=== PATIENT | female | born 1980 | race Caucasian/White ===

== ENCOUNTER 2016-07-23 13:29 | Emergency (ER) | payer MEDICAID ==
[2016-07-23 14:10] VITALS: BP 124/73
--- NOTE | 2016-07-23 14:51 | EDM.PDOC ---
ED HPI GENERAL MEDICAL PROBLEM - General Chief Complaint: General Stated Complaint: WEAK Time Seen by Provider: 07/23/16 14:07 Source of Information: Reports: Patient History Limitations: Reports: No limitations - History of Present Illness INITIAL COMMENTS - FREE TEXT/NARRATIVE: HISTORY AND PHYSICAL: [35-year-old female who works at [employer] brings her 2 children and because they are ill she has also been sick for the last 2 days] History of Present Illness: [Patient has been ill for 2 days coughing chills fever Patient relates to short tempered feeling sad] Review of Systems: As per history of present illness and below otherwise all systems reviewed and negative. Past medical history: As per history of present illness and as reviewed below otherwise noncontributory. Surgical history: As per history of present illness and as reviewed below otherwise noncontributory. Social history: No reported history of drug or alcohol abuse. Family history: As per history of present illness and as reviewed below otherwise noncontributory. Physical exam: Alert and oriented answering questions appropriately a flat affect HEENT: Atraumatic, normocehpalic, pupils reactive, negative for conjunctival pallor or scleral icterus, mucous membranes moist, throat clear, neck supple, nontender, trachea midline. Lungs: Clear to auscultation, breath sounds equal bilaterally, chest non tender. Heart: S1S2, regular, negative for clicks, rubs, or JVD. Abdomen: Soft, nondistended, nontender. Negative for masses or hepatossplenmegaly. Negative for costovertebral tenderness. Pelvis: Stable nontender. Genitourinary: Deferred. Rectal: Deferred Extremities: Atraumatic, negative for cords or calf pain. Neurovascular unremarkable. Neuro: Awake, alert, oriented. Cranial nerves II through XII unremarkable. Cerebellum unremarkable. Motor and sensory unremarkable throughout. Exam nonfocal. 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 Onset: gradual Duration: Day(s): (2), Constant Location: Reports: chest, generalized Quality: Reports: Ache Severity: moderate Improves with: Reports: None Worsens with: Reports: None Associated Symptoms: Reports: other (sad) Chest Pain Score (Numeric/FACES): 1 - Related Data Allergies Allergy/AdvReac Type Severity Reaction Status Date / Time No Known Allergies Allergy Verified 07/04/15 12:59 Home Meds: Home Meds . 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 Other OB/BYN History: Surgery of her cervix, pt is unsure of what kind Musculoskeletal History: Reports: Other (see below) Other Musculoskeletal History: I&D of leg for MRSA...states was cleared Neurological History: Reports: None Psychiatric History: Reports: None Endocrine/Metabolic History: Reports: None Hematologic History: Reports: None Immunologic History: Reports: None Oncologic (Cancer) History: Reports: None Dermatologic History: Reports: None - Infectious Disease History Infectious Disease History: Reports: MRSA - Past Surgical History Head Surgeries/Procedures: Reports: None Cardiovascular Surgical History: Reports: None Respiratory Surgical History: Reports: None Female Surgical History: Reports: section Endocrine Surgical History: Reports: None Neurological Surgical History: Reports: None Other Musculoskeletal Surgeries/Procedures:: MRSA Oncologic Surgical History: Reports: None Social & Family History - Family History Respiratory: Reports: COPD - Tobacco Use Smoking Status *Q: Current Every Day Smoker Years of Tobacco use: 20 Packs/Tins Daily: 0.5 - Caffeine Use Caffeine Use: Reports: Coffee, Energy drinks, Soda - Alcohol Use Days Per Week of Alcohol Use: 3 Number of Drinks Per Day: 3 Total Drinks Per Week: 9 - Recreational Drug Use Recreational Drug Use: No Drug Use in Last 12 Months: Yes Recreational Drug Type: Reports: Marijuana/Hashish, Methamphetamine Recreational Drug Use Frequency: Not Used In Over 2 Months ED ROS GENERAL - Review of Systems Review Of Systems: ROS reveals no pertinent complaints other than HPI. ED EXAM, GENERAL - Physical Exam Exam: See Below Course - Vital Signs Last Recorded V/S: Last Vital Signs Temp 37.1 C 07/23/16 14:07 Pulse 90 07/23/16 14:07 Resp 16 07/23/16 14:07 BP 124/73 07/23/16 14:07 Pulse Ox 95 07/23/16 14:07 Departure - Departure Time of Disposition: 14:50 Disposition: Home, Self-Care 01 Condition: good Clinical Impression: Viral syndrome Depression (emotion) Qualifiers: Depression Type: unspecified Qualified Code(s): F32.9 - Major depressive disorder, single episode, unspecified Forms: ED Department Discharge Additional Instructions: The following information is given to patients seen in the emergency department who are being discharged to home. This information is to outline your options for follow-up care. We provide all patients seen in our emergency department with a follow-up referral. The need for follow-up, as well as the timing and circumstances, are variable depending upon the specifics of your emergency department visit. If you don't have a primary care physician on staff, we will provide you with a referral. We always advise you to contact your personal physician following an emergency department visit to inform them of the circumstance of the visit and for follow-up with them and/or the need for any referrals to a consulting specialist. The emergency department will also refer you to a specialist when appropriate. This referral assures that you have the opportunity for followup care with a specialist. All of these measure are taken in an effort to provide you with optimal care, which includes your followup. Under all circumstances we always encourage you to contact your private physician who remains a resource for coordinating your care. When calling for followup care, please make the office aware that this follow-up is from your recent emergency room visit. If for any reason you are refused follow-up, please contact the [facility] emergency department at and asked to speak to the emergency department charge nurse. Note is given for off work until [phone] Contact Canelo Coy NP to be evaluated for depression
== END 2016-07-23 15:16 | disposition home or self-care (01) ==
LOC: MW.ED 13:29
DX: F32.9 Major depressive disorder, single episode, unspecified (principal); B34.9 Viral infection, unspecified; F17.210 Nicotine dependence, cigarettes, uncomplicated
CPT/HCPCS: 87804; 99283

== ENCOUNTER 2016-11-28 10:21 | Day surgery (SDC) | payer MEDICAID ==
[~2016-11-28 10:21] MED LIST: Bupivacaine 0.25%/EPINEPHrine 1:200,000 10 ML SDV INJECT ONE; Bupivacaine 0.25%/EPINEPHrine 1:200,000 10 ML SDV ONE; Lactated Ringers 1,000 ML IV SCH; ceFAZolin 2 GM in Premix Bag 1 BAG IV ONE; traMADol 50 MG Tab PO PRN
--- NOTE | 2016-11-28 11:24 | PCM.PREANE ---
Preanesthetic Assessment - Anesthesia/Transfusion/Family Hx Anesthesia History: Prior Anesthesia Without Reaction Family History of Anesthesia Reaction: No Transfusion History: No Prior Transfusion(s) Intubation History: Unknown - Review of Systems General: No Symptoms Pulmonary: No Symptoms Cardiovascular: No Symptoms Gastrointestinal: No Symptoms Neurological: No Symptoms Other: Reports: None - Physical Assessment NPO Status Date: 11/27/16 NPO Status Time: 22:30 O2 Sat by Pulse Oximetry: 96 Respiratory Rate: 16 Vital Signs: Last Vital Signs Temp 36.3 C 11/28/16 10:42 Pulse 79 11/28/16 10:42 Resp 16 11/28/16 10:42 BP 109/64 11/28/16 10:42 Pulse Ox 96 11/28/16 10:42 Height: 1.75 m Weight: 86.183 kg ASA Class: 2 Mental Status: Alert & Oriented x3 Airway Class: Mallampati = 2 Dentition: Reports: Dentures (upper) Thyro-Mental Finger Breadths: 3 Mouth Opening Finger Breadths: 3 ROM/Head Extension: Full Lungs: Clear to auscultation, Normal respiratory effort Cardiovascular: Regular Rate, Regular Rhythm - Lab Values: Laboratory Last Values Urine HCG, Qual NEGATIVE (NEGATIVE) 11/28/16 10:24 - Allergies Allergies/Adverse Reactions: Allergies Allergy/AdvReac Type Severity Reaction Status Date / Time No Known Allergies Allergy Verified 07/04/15 12:59 - Blood Blood Available: No - Anesthesia Plan Pre-Op Medication Ordered: None - Acknowledgements Anesthesia Type Planned: MAC Pt an Appropriate Candidate for the Planned Anesthesia: Yes Alternatives and Risks of Anesthesia Discussed w Pt/Guardian: Yes Pt/Guardian Understands and Agrees with Anesthesia Plan: Yes PreAnesthesia Questionnaire - Past Health History Medical/Surgical History: Denies Medical/Surgical History HEENT History: Reports: Other (See Below) Other HEENT History: has upper dentures Cardiovascular History: Reports: None Respiratory History: Reports: None Gastrointestinal History: Reports: None Genitourinary History: Reports: STD 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: , 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 Other OB/BYN History: Surgery of her cervix, pt is unsure of what kind Musculoskeletal History: Reports: Back Pain, Chronic, Other (See Below) Other Musculoskeletal History: I&D of leg for MRSA...states was cleared Neurological History: Reports: None Psychiatric History: Reports: Depression Endocrine/Metabolic History: Reports: None Hematologic History: Reports: None Immunologic History: Reports: None Oncologic (Cancer) History: Other Oncologic History: melanoma of skin, rt arm Dermatologic History: Reports: Melanoma (left forarm) - Infectious Disease History Infectious Disease History: Reports: MRSA - Past Surgical History Head Surgeries/Procedures: Reports: None HEENT Surgical History: Reports: None Cardiovascular Surgical History: Reports: None Respiratory Surgical History: Reports: None GI Surgical History: Reports: None Female Surgical History: Reports: Section Endocrine Surgical History: Reports: None Neurological Surgical History: Reports: None Oncologic Surgical History: Reports: None Other Dermatological Surgeries/Procedures: I&D of left thigh abscess - SUBSTANCE USE Smoking Status *Q: Current Every Day Smoker (1/2 ppd) Tobacco Use Within Last Twelve Months: Cigarettes Days Per Week of Alcohol Use: 3 Number of Drinks Per Day: 3 Total Drinks Per Week: 9 Recreational Drug Use History: No Recreational Drug Type: Reports: Marijuana/Hashish, Methamphetamine - HOME MEDS Home Medications: Home Meds FLUoxetine HCl [Prozac] 20 mg PO DAILY 11/22/16 [History] Ketorolac Tromethamine 10 mg PO Q6H PRN 11/22/16 [History] busPIRone [Buspar] 5 mg PO BID 11/22/16 [History] - CURRENT (IN HOUSE) MEDS Current Meds: Current Medications Lactated Ringer's (Ringers, Lactated) 1,000 mls @ 125 mls/hr IV ASDIRECTED [facility] Last Admin: 11/28/16 10:43 Dose: 125 mls/hr Tramadol HCl (Ultram) 50 mg PO Q4H PRN PRN Reason: Pain Discontinued Medications Bupivacaine HCl/Epinephrine Bitart (Marcaine 0.25%/Epinephrine 1:200,000) 10 ml INJECT ONETIME ONE Stop: 11/28/16 10:01 Bupivacaine HCl/Epinephrine Bitart (Marcaine 0.25%/Epinephrine 1:200,000) Confirm Administered Dose 20 ml .ROUTE .STK-MED ONE Stop: 11/28/16 07:32 Cefazolin Sodium/Dextrose 2 gm (/ Premix) 50 mls @ 100 mls/hr IV ONETIME ONE Stop: 11/28/16 10:29
[2016-11-28] MEDS ORDERED: Lidocaine 2% 5 ML SDV ONE ×2 (11:33→12:01)
[2016-11-28] MEDS ORDERED: Propofol 200 MG/20 ML SDV ONE ×3 (11:34)
[2016-11-28] MEDS ORDERED: Sodium Chloride 0.9% 20 ML ONE (11:35)
[2016-11-28] MEDS ORDERED: ceFAZolin 1 GM Vial ONE (11:35)
[2016-11-28 14:21] VITALS: BP 90/61
--- NOTE | 2016-11-28 15:34 | PCM.OPNOTE ---
- General Post-Op/Procedure Note Date of Surgery/Procedure: 11/28/16 Operative Procedure(s): reexcision of right arm melanoma for 1cm margins Pre Op Diagnosis: right arm melanoma depth 0.3mm - previously excised by Dr German Post-Op Diagnosis: Same Anesthesia Technique: General LMA, Local Primary Surgeon: G[employer] Navigator: Jennifer Humphreys Complications: None Condition: Good Free Text/Narrative:: Intake & Output 11/27/16 11/28/16 11/28/16 23:59 07:59 15:59 Intake Total 900 Balance 900
--- NOTE | 2016-11-29 16:10 | OR ---
SURGEON: MIGDALIA WALTERS MD DATE OF PROCEDURE: 11/28/2016 PREOPERATIVE DIAGNOSIS: Melanoma, right forearm. POSTOPERATIVE DIAGNOSIS: Melanoma, right forearm measuring previous excision of 1.6 x 1.2 x 0.5 cm. PROCEDURE: Excision of right forearm melanoma for margins. Total excision measuring 4 x 2.5 cm with intermediate closure of 4 cm total length of right forearm. INDICATIONS: Ms. Vaughn is an unfortunate 35-year-old female with melanoma of the right arm. She had this excised by her general surgeon and pathology came back as melanoma with a depth of 0.3 cm. This indicates a 1 cm margin as necessary. Previous excision was transverse and an ellipse of 1.6 x 1.2 cm. This was closed primarily. Risks and benefits of re-excision for margins were discussed with the patient and she was in agreement to proceed. Risks were including, but not limited to, bleeding, infection, damage to underlying or overlying structures, possible need for future interventions, and possible scarring. She does know that we will try to shift this in a more longitudinal fashion for excision. She understands it will be quite large of an excision. In addition, she understands that this will be skin only. The patient is on a court ordered drug testing due to severe drug addiction. We discussed that use of medications including narcotics will not be discussed for this. We will use tramadol and local anesthesia. In addition, during the procedure, we will focus on propofol use and not use narcotics or other things that could disrupt her drug testing. She understands and we have kept meticulous records of this. After all risks and benefits, she was in agreement to proceed. PROCEDURE IN DETAIL: After informed consent was obtained and placed on the chart, the patient was brought to the operating theater and laid in the supine position. After adequate general anesthetic was obtained, the area was prepped and draped in a normal fashion and a time-out was completed to confirm side and site. A 0.25% Marcaine with epinephrine was used in a field block. Once adequately blocked, attention was then paid to excision and meticulous hemostasis. This was excised for a total length of 4 cm x 2.5 cm and closed in an intermediate fashion for a total length of 4 cm. This scar was maintained centrally and dissection was carried down through the subcutaneous fat deeply. Once adequately excised, meticulous hemostasis was obtained and additional Marcaine was used to augment the field block. Once this was completed, the skin was closed in an intermediate fashion using deep 3-0 Monocryl stitches and a running 4-0 subcuticular for the skin. This was dressed with Steri-Strips, fluffs, and a 3- inch Florentino wrap for compression. The patient tolerated this well. All counts and needles were correct at the end the case. FOLLOWUP INSTRUCTIONS: The patient was discharged home with a prescription for tramadol. This is the extent of what we will provide for pain medication. This was discussed with her thoroughly. She understands this. We will see her in clinic in approximately 1 week or sooner if any problems, questions, or concerns. HEMARITZA / JOVITA /[id number]
== END 2016-11-28 14:20 | disposition home or self-care (01) ==
LOC: MW.SDS 10:21
PROVIDERS: ATTEND Plastic Surgery
PROC: 0HQDXZZ Repair Right Lower Arm Skin, External Approach (ICD-10-PCS; principal; 2016-11-28)
PROC: 0HBDXZZ Excision of Right Lower Arm Skin, External Approach (ICD-10-PCS; 2016-11-28)
DX: C43.61 Malignant melanoma of right upper limb, including shoulder (principal); M54.9 Dorsalgia, unspecified; G89.29 Other chronic pain; F17.210 Nicotine dependence, cigarettes, uncomplicated; Z86.14 Personal history of Methicillin resistant Staphylococcus aureus infection; Z86.19 Personal history of other infectious and parasitic diseases; Z79.899 Other long term (current) drug therapy; Z98.890 Other specified postprocedural states
CPT/HCPCS: 11606; 12032; 81025; 88305; A9270; J0690; J7120; 00400; J2704

== ENCOUNTER 2017-03-13 17:20 | Emergency (ER) | payer MEDICAID ==
--- NOTE | 2017-03-13 17:51 | EDM.PDOC ---
ED HPI GENERAL MEDICAL PROBLEM - General Chief Complaint: Skin Complaint Stated Complaint: PAIN RT ARM Time Seen by Provider: 03/13/17 17:50 Source of Information: Reports: Patient History Limitations: Reports: No Limitations - History of Present Illness INITIAL COMMENTS - FREE TEXT/NARRATIVE: HISTORY AND PHYSICAL: History of present illness: [Patient comes to the emergency room complaining of right arm pain. She admits a history of melanoma with excision to her right forearm. She is scheduled for another melanoma excision to her right upper arm on March [address] German. Patient woke up with some swelling to her right hand and pain in her right arm. This has gradually worsened as the day has gone on. Feels that the pain originates in her right neck trapezius area and radiates down her arm. Denies chest pain, shortness of breath and difficulty breathing. ] Review of systems: As per history of present illness and below otherwise all systems reviewed and negative. Past medical history: As per history of present illness and as reviewed below otherwise noncontributory. Surgical history: As per history of present illness and as reviewed below otherwise noncontributory. Social history: No reported history of drug or alcohol abuse. Family history: As per history of present illness and as reviewed below otherwise noncontributory. Physical exam: HEENT: Atraumatic, normocephalic. Extremities: Scar to R forearm. Tender over right sternocleidomastoid and trapezius. No tenderness with palpation over her right upper and lower arm. 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 Cap refill less than 2 seconds to both hands. Radial pulses are 2+ and equal bilaterally. Atraumatic, negative for cords or calf pain. Neurovascular unremarkable. Neuro: Awake, alert, oriented. Motor and sensory unremarkable throughout. Exam nonfocal. Impression: [Neck/right shoulder pain] Plan: [Recommend [id number] analgesics and anti-inflammatories as needed for discomfort. If pain continues or does not improve she should follow-up with her PCP. Return precautions are reviewed with the patient. All of her questions are answered and concerns are addressed. She is in agreement with today's discussion.] Definitive disposition and diagnosis as appropriate pending reevaluation and review of above. Right arm Pain Score (Numeric/FACES): 5 - Related Data Allergies Allergy/AdvReac Type Severity Reaction Status Date / Time No Known Allergies Allergy Verified 03/13/17 17:38 Home Meds: Home Meds . 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 Other OB/BYN History: Surgery of her cervix, pt is unsure of what kind Musculoskeletal History: Reports: Back Pain, Chronic, Other (See Below) Other Musculoskeletal History: I&D of leg for MRSA...states was cleared Neurological History: Reports: None Psychiatric History: Reports: Depression Endocrine/Metabolic History: Reports: None Hematologic History: Reports: None Immunologic History: Reports: None Oncologic (Cancer) History: Other Oncologic History: melanoma of skin, rt arm Dermatologic History: Reports: Melanoma (left forarm) - Infectious Disease History Infectious Disease History: Reports: MRSA - Past Surgical History Head Surgeries/Procedures: Reports: None HEENT Surgical History: Reports: None Cardiovascular Surgical History: Reports: None Respiratory Surgical History: Reports: None GI Surgical History: Reports: None Female Surgical History: Reports: Section Endocrine Surgical History: Reports: None Neurological Surgical History: Reports: None Oncologic Surgical History: Reports: None Other Dermatological Surgeries/Procedures: I&D of left thigh abscess Social & Family History - Family History Respiratory: Reports: COPD - Tobacco Use Smoking Status *Q: Current Every Day Smoker (1/2 ppd) Years of Tobacco use: 20 Packs/Tins Daily: 0.5 - Caffeine Use Caffeine Use: Reports: Coffee, Energy Drinks, Soda - Alcohol Use Days Per Week of Alcohol Use: 3 Number of Drinks Per Day: 3 Total Drinks Per Week: 9 - Recreational Drug Use Recreational Drug Use: No Drug Use in Last 12 Months: Yes Recreational Drug Type: Reports: Marijuana/Hashish, Methamphetamine Recreational Drug Use Frequency: Not Used In Over 2 Months ED ROS GENERAL - Review of Systems Review Of Systems: ROS reveals no pertinent complaints other than HPI. ED EXAM, SKIN/RASH Exam: See Below Course - Vital Signs Last Recorded V/S: Last Vital Signs Temp 98.6 F 03/13/17 17:41 Pulse 94 03/13/17 17:41 Resp 16 03/13/17 17:41 BP 118/75 03/13/17 17:41 Pulse Ox 99 03/13/17 17:41 Departure - Departure Time of Disposition: 18:10 Disposition: Home, Self-Care 01 Condition: Good Clinical Impression: Right arm pain - Discharge Information Instructions: Medical Screening Exam Referrals: PCP,None [Primary Care Provider] - Forms: ED Department Discharge Additional Instructions: The following information is given to patients seen in the emergency department who are being discharged to home. This information is to outline your options for follow-up care. We provide all patients seen in our emergency department with a follow-up referral. The need for follow-up, as well as the timing and circumstances, are variable depending upon the specifics of your emergency department visit. If you don't have a primary care physician on staff, we will provide you with a referral. We always advise you to contact your personal physician following an emergency department visit to inform them of the circumstance of the visit and for follow-up with them and/or the need for any referrals to a consulting specialist. The emergency department will also refer you to a specialist when appropriate. This referral assures that you have the opportunity for follow-up care with a specialist. All of these measure are taken in an effort to provide you with optimal care, which includes your follow-up. Under all circumstances we always encourage you to contact your private physician who remains a resource for coordinating your care. When calling for follow-up care, please make the office aware that this follow-up is from your recent emergency room visit. If for any reason you are refused follow-up, please contact the [facility] emergency department at and asked to speak to the emergency department charge nurse. [facility] [address] [place] [id number] Follow-up with your primary care provider as we discussed. Tylenol, ibuprofen, icy hot to affected area. Return to ER as needed as discussed.
[2017-03-13 17:52] VITALS: BP 118/75
== END 2017-03-13 18:34 | disposition home or self-care (01) ==
LOC: MW.ED 17:20
DX: M25.511 Pain in right shoulder (principal); M54.2 Cervicalgia; F17.210 Nicotine dependence, cigarettes, uncomplicated; Z85.820 Personal history of malignant melanoma of skin; Z98.890 Other specified postprocedural states
CPT/HCPCS: 99282; 99283

== ENCOUNTER 2017-06-05 13:03 | Emergency (ER) | payer MEDICAID ==
[2017-06-05] MEDS ORDERED: Sodium Chloride 0.9% 1,000 ML IV ONE (13:52)
[2017-06-05] MEDS ORDERED: Ketorolac 30 MG/ML SDV IVPUSH ONE (13:52)
[2017-06-05] MEDS ORDERED: Ketorolac 60 MG/2 ML SDV IM ONE (14:00)
--- NOTE | 2017-06-05 14:43 | EDM.PDOC ---
ED HPI GENERAL MEDICAL PROBLEM - General Chief Complaint: General Stated Complaint: SHAKEY/WEAK/SORE THROAT Time Seen by Provider: 06/05/17 13:48 - History of Present Illness INITIAL COMMENTS - FREE TEXT/NARRATIVE: HISTORY AND PHYSICAL: History of present illness: Patient is a 36-year-old female who presents to the emergency room today with complaints of body aches, fever, back pain, sore throat, frontal headache 1 week. States she has not been feeling well and was going to go home from work sick today, she was told she would be fired if she did not have a written excuse. Denies any abdominal pain, nausea, vomiting or diarrhea. Denies any dysuria or bowel or bladder concerned/complaints. Denies any chance of . Has not received the [id number] influenza vaccine. Review of systems: As per history of present illness and below otherwise all systems reviewed and negative. Past medical history: As per history of present illness and as reviewed below otherwise noncontributory. Surgical history: As per history of present illness and as reviewed below otherwise noncontributory. Social history: No reported history of drug or alcohol abuse. Family history: As per history of present illness and as reviewed below otherwise noncontributory. Physical exam: Neuro: Well-developed and well-nourished 36-year-old female. Alert and oriented. Appears nontoxic and in no acute distress HEENT: Atraumatic, normocephalic, pupils reactive, negative for conjunctival pallor or scleral icterus, mucous membranes moist, mild erythema noted to the posterior pharynx without exudate, no lymphadenopathy, neck supple, nontender, trachea midline. Lungs: Clear to auscultation, breath sounds equal bilaterally, chest nontender. Heart: S1S2, regular, negative for clicks, rubs, or JVD. Abdomen: Soft, nondistended, nontender. Negative for masses or hepatosplenomegaly. Negative for costovertebral tenderness. Pelvis: Stable nontender. Genitourinary: Deferred. Rectal: Deferred. Extremities: Atraumatic, negative for cords or calf pain. Neurovascular unremarkable. Neuro: Awake, alert, oriented. Cranial nerves II through XII unremarkable. Cerebellum unremarkable. Motor and sensory unremarkable throughout. Exam nonfocal. Diagnostics: CBC, CMP, Monospot, strep, influenza Therapeutics: IM Toradol Impression: #1 strep throat Plan: 1. Please take the medications as prescribed. Pen-Vee K has been given to you, one tab 3 times daily 10 days. Phenergan with codeine elixir has been given to you for cough and throat pain. May take 1-2 teaspoons every 4-6 hours as needed. This will cause drowsiness so do not take it at work or while needing to drive. He continued to use Tylenol and/or ibuprofen as needed over-the- counter. 2. Warm salt water gargle/rinse 3 times daily. Please get a new toothbrush once you have completed antibiotic. Please drink plenty of fluids to prevent dehydration. 3. Follow-up with your care provider in the next 1-2 days. Return to the ED as needed and as discussed. Definitive disposition and diagnosis as appropriate pending reevaluation and review of above. Duration: Day(s): middle back Pain Score (Numeric/FACES): 4 - Related Data Allergies Allergy/AdvReac Type Severity Reaction Status Date / Time No Known Allergies Allergy Verified 06/05/17 13:33 Home Meds: Home Meds . 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 Other OB/BYN History: Surgery of her cervix, pt is unsure of what kind Musculoskeletal History: Reports: Back Pain, Chronic, Other (See Below) Other Musculoskeletal History: I&D of leg for MRSA...states was cleared Neurological History: Reports: None Psychiatric History: Reports: Depression Endocrine/Metabolic History: Reports: None Hematologic History: Reports: None Immunologic History: Reports: None Oncologic (Cancer) History: Other Oncologic History: melanoma of skin, rt arm Dermatologic History: Reports: Melanoma - Infectious Disease History Infectious Disease History: Reports: MRSA - Past Surgical History Head Surgeries/Procedures: Reports: None HEENT Surgical History: Reports: None Cardiovascular Surgical History: Reports: None Respiratory Surgical History: Reports: None GI Surgical History: Reports: None Female Surgical History: Reports: Section Endocrine Surgical History: Reports: None Neurological Surgical History: Reports: None Oncologic Surgical History: Reports: None Social & Family History - Family History Family Medical History: Noncontributory Respiratory: Reports: COPD - Tobacco Use Smoking Status *Q: Current Every Day Smoker Years of Tobacco use: 15 Packs/Tins Daily: 0.4 - Caffeine Use Caffeine Use: Reports: Coffee - Alcohol Use Days Per Week of Alcohol Use: 3 Number of Drinks Per Day: 3 Total Drinks Per Week: 9 - Recreational Drug Use Recreational Drug Use: No Drug Use in Last 12 Months: Yes Recreational Drug Type: Reports: Marijuana/Hashish, Methamphetamine Recreational Drug Use Frequency: Not Used In Over 2 Months ED ROS GENERAL - Review of Systems Review Of Systems: ROS reveals no pertinent complaints other than HPI. ED EXAM, GENERAL - Physical Exam Exam: See Below (See dictation) Course - Vital Signs Last Recorded V/S: Last Vital Signs Temp 96.7 F 06/05/17 13:33 Pulse 87 06/05/17 13:33 Resp 18 06/05/17 13:33 BP 126/65 06/05/17 13:33 Pulse Ox 97 06/05/17 13:33 Orthostatic Blood Pressure [ 134/77 Standing] Orthostatic Blood Pressure [ 115/76 Sitting] Orthostatic Blood Pressure [ 113/83 Supine] - Orders/Labs/Meds Orders: Active Orders 24 hr Category Date Time Status Orthostatic Vital Signs [RC] ASDIRECTED Care 06/05/17 13:43 Active MONONUCLEOSIS SCREEN [CHEM] Stat Lab 06/05/17 14:16 Received Labs: Laboratory Tests 06/05/17 06/05/17 Range/Units 14:16 14:16 WBC 4.79 (4.0-11.0) K/uL RBC 4.21 L (4.30-5.90) M/uL Hgb 12.4 (12.0-16.0) g/dL Hct 37.8 (36.0-46.0) % MCV 89.8 (80.0-98.0) fL MCH 29.5 (27.0-32.0) pg MCHC 32.8 (31.0-37.0) g/dL RDW Std Deviation 51.5 (28.0-62.0) fl RDW Coeff of Gamal 16 H (11.0-15.0) % Plt Count 212 (150-400) K/uL MPV 11.00 (7.40-12.00) fL Neut % (Auto) 58.9 (48.0-80.0) % Lymph % (Auto) 29.4 (16.0-40.0) % [place] % (Auto) 11.1 (0.0-15.0) % Eos % (Auto) 0.4 (0.0-7.0) % Baso % (Auto) 0.2 (0.0-1.5) % Neut # (Auto) 2.8 (1.4-5.7) K/uL Lymph # (Auto) 1.4 (0.6-2.4) K/uL [place] # (Auto) 0.5 (0.0-0.8) K/uL Eos # (Auto) 0.0 (0.0-0.7) K/uL Baso # (Auto) 0.0 (0.0-0.1) K/uL Nucleated RBC % 0.0 /100WBC Nucleated RBCs # 0 K/uL Sodium 138 (136-146) mmol/L Potassium 4.3 (3.5-5.1) mmol/L Chloride 105 (98-110) mmol/L Carbon Dioxide 25 (21-31) mmol/L BUN 11 (6.0-23.0) mg/dL Creatinine 0.7 (0.6-1.5) mg/dL Est Cr Clr Drug Dosing 117.23 mL/min Estimated GFR (MDRD) > 60.0 ml/min Glucose 80 (60-110) mg/dL Calcium 9.1 (8.8-10.8) mg/dL Total Bilirubin 0.3 (0.1-1.5) mg/dL AST 14 (5-40) IU/L ALT 15 (8-54) IU/L Alkaline Phosphatase 86 (40-150) Total Protein 6.8 (6.0-8.0) g/dL Albumin 4.0 (3.5-5.0) g/dL Globulin 2.8 (2.0-3.5) g/dL Albumin/Globulin Ratio 1.4 (1.3-2.8) Meds: Medications Discontinued Medications Generic Name Dose Route Start Last Admin Trade Name Freq PRN Reason Stop Dose Admin Sodium Chloride 1,000 mls @ 999 mls/hr 06/05/17 13:52 06/05/17 14:42 Normal Saline IV 06/05/17 14:52 Not Given STAT ONE Ketorolac Tromethamine 30 mg 06/05/17 13:52 06/05/17 14:42 Toradol IVPUSH 06/05/17 13:53 Not Given ONETIME ONE Ketorolac Tromethamine 60 mg 06/05/17 14:00 06/05/17 14:06 Toradol IM 06/05/17 14:01 60 mg ONETIME ONE Administration Departure - Departure Time of Disposition: 15:01 Disposition: Home, Self-Care 01 Clinical Impression: Strep throat - Discharge Information Referrals: Sita Pacheco NP [Primary Care Provider] - Forms: ED Department Discharge Additional Instructions: My general discharge The following information is given to patients seen in the emergency department who are being discharged to home. This information is to outline your options for follow-up care. We provide all patients seen in our emergency department with a follow-up referral. The need for follow-up, as well as the timing and circumstances, are variable depending upon the specifics of your emergency department visit. If you don't have a primary care physician on staff, we will provide you with a referral. We always advise you to contact your personal physician following an emergency department visit to inform them of the circumstance of the visit and for follow-up with them and/or the need for any referrals to a consulting specialist. The emergency department will also refer you to a specialist when appropriate. This referral assures that you have the opportunity for follow-up care with a specialist. All of these measure are taken in an effort to provide you with optimal care, which includes your follow-up. Under all circumstances we always encourage you to contact your private physician who remains a resource for coordinating your care. When calling for follow-up care, please make the office aware that this follow-up is from your recent emergency room visit. If for any reason you are refused follow-up, please contact the [facility] Emergency Department at and asked to speak to the emergency department charge nurse. [facility] [address] [place] [id number] 1. Please take the medications as prescribed. Pen-K has been given to you, one tab 3 times daily 10 days. Phenergan with codeine elixir has been given to you for cough and throat pain. May take 1-2 teaspoons every 4-6 hours as needed. This will cause drowsiness so do not take it at work or while needing to drive. He continued to use Tylenol and/or ibuprofen as needed [id number]. 2. Warm salt water gargle/rinse 3 times daily. Please get a new toothbrush once you have completed antibiotic. Please drink plenty of fluids to prevent dehydration. Examination measures as we discussed (good hand washing etc...). 3. Follow-up with your care provider in the next 1-2 days. Return to the ED as needed and as discussed. - My Orders Last 24 Hours: My Active Orders 06/05/17 13:43 Orthostatic Vital Signs [RC] ASDIRECTED 06/05/17 14:16 MONONUCLEOSIS SCREEN [CHEM] Stat - Assessment/Plan Last 24 Hours: My Active Orders 06/05/17 13:43 Orthostatic Vital Signs [RC] ASDIRECTED 06/05/17 14:16 MONONUCLEOSIS SCREEN [CHEM] Stat
[2017-06-05 14:52] LABS: CHLORIDE,CL 105 mmol/L (98-110); SODIUM,NA 138 mmol/L (136-146)
[2017-06-05 16:10] VITALS: BP 109/68
== END 2017-06-05 15:20 | disposition home or self-care (01) ==
LOC: MW.ED 13:03
DX: J02.0 Streptococcal pharyngitis (principal); F17.210 Nicotine dependence, cigarettes, uncomplicated
CPT/HCPCS: 36415; 80053; 85025; 86308; 87804; 87880; 96372; 99283; J1885

== ENCOUNTER 2017-10-24 12:23 | Emergency (ER) | payer MEDICAID ==
--- NOTE | 2017-10-24 12:36 | EDM.PDOC ---
ED HPI GENERAL MEDICAL PROBLEM - General Chief Complaint: ENT Problem Stated Complaint: SORE THROAT AND BOTH EARS ACHE Time Seen by Provider: 10/24/17 12:27 - History of Present Illness INITIAL COMMENTS - FREE TEXT/NARRATIVE: HISTORY AND PHYSICAL: History of present illness: Patient 36-year-old female presents with bilateral ear pain and sore throat she denies fever chills nausea vomiting or other complaints Review of systems: As per history of present illness and below otherwise all systems reviewed and negative. Past medical history: As per history of present illness and as reviewed below otherwise noncontributory. Surgical history: As per history of present illness and as reviewed below otherwise noncontributory. Social history: No reported history of drug or alcohol abuse. Family history: As per history of present illness and as reviewed below otherwise noncontributory. Physical exam: HEENT: Atraumatic, normocephalic, pupils reactive, negative for conjunctival pallor or scleral icterus, mucous membranes moist, throat injected no peritonsillar fullness ovular deviation trismus or hot potato voice neck supple , nontender, trachea midline. TM clear bilaterally Lungs: Clear to auscultation, breath sounds equal bilaterally, chest nontender. Heart: S1S2, regular, negative for clicks, rubs, or JVD. Abdomen: Soft, nondistended, nontender. Negative for masses or hepatosplenomegaly. Negative for costovertebral tenderness. Pelvis: Stable nontender. Genitourinary: Deferred. Rectal: Deferred. Extremities: Atraumatic, negative for cords or calf pain. Neurovascular unremarkable. Neuro: Awake, alert, oriented. Cranial nerves II through XII unremarkable. Cerebellum unremarkable. Motor and sensory unremarkable throughout. Exam nonfocal. Diagnostics: None Therapeutics: None Impression: #1 bilateral otalgia #2 pharyngitis Definitive disposition and diagnosis as appropriate pending reevaluation and review of above. - Related Data Allergies Allergy/AdvReac Type Severity Reaction Status Date / Time No Known Allergies Allergy Verified 06/05/17 13:33 Home Meds: Home Meds . 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 History: Surgery of her cervix, pt is unsure of what kind Musculoskeletal History: Reports: Back Pain, Chronic, Other (See Below) Other Musculoskeletal History: I&D of leg for MRSA...states was cleared Neurological History: Reports: None Psychiatric History: Reports: Depression Endocrine/Metabolic History: Reports: None Hematologic History: Reports: None Immunologic History: Reports: None Oncologic (Cancer) History: Other Oncologic History: melanoma of skin, rt arm Dermatologic History: Reports: Melanoma - Infectious Disease History Infectious Disease History: Reports: MRSA - Past Surgical History Head Surgeries/Procedures: Reports: None HEENT Surgical History: Reports: None Cardiovascular Surgical History: Reports: None Respiratory Surgical History: Reports: None GI Surgical History: Reports: None Female Surgical History: Reports: Section Endocrine Surgical History: Reports: None Neurological Surgical History: Reports: None Oncologic Surgical History: Reports: None Social & Family History - Family History Family Medical History: Noncontributory Respiratory: Reports: COPD - Caffeine Use Caffeine Use: Reports: Coffee ED ROS GENERAL - Review of Systems Review Of Systems: ROS reveals no pertinent complaints other than HPI. ED EXAM, GENERAL - Physical Exam Exam: See Below (See dictation) Departure - Departure Time of Disposition: 12:35 Disposition: Home, Self-Care 01 Condition: Good Clinical Impression: Otalgia, Pharyngitis - Discharge Information Referrals: Sita Pacheco [employer] REPORTER [Primary Care Provider] - Additional Instructions: The following information is given to patients seen in the emergency department who are being discharged to home. This information is to outline your options for follow-up care. We provide all patients seen in our emergency department with a follow-up referral. The need for follow-up, as well as the timing and circumstances, are variable depending upon the specifics of your emergency department visit. If you don't have a primary care physician on staff, we will provide you with a referral. We always advise you to contact your personal physician following an emergency department visit to inform them of the circumstance of the visit and for follow-up with them and/or the need for any referrals to a consulting specialist. The emergency department will also refer you to a specialist when appropriate. This referral assures that you have the opportunity for followup care with a specialist. All of these measure are taken in an effort to provide you with optimal care, which includes your followup. Under all circumstances we always encourage you to contact your private physician who remains a resource for coordinating your care. When calling for followup care, please make the office aware that this follow-up is from your recent emergency room visit. If for any reason you are refused follow-up, please contact the [facility] emergency department at and asked to speak to the emergency department charge nurse. [facility] Primary [facility] [address] [place] [phone] Azithromycin as prescribed follow-up primary medical doctor and/or clinic above as needed as discussed return as needed as discussed/Tylenol as directed. Stop Smoking
[2017-10-24 12:50] VITALS: BP 121/67
== END 2017-10-24 12:46 | disposition home or self-care (01) ==
LOC: MW.ED 12:23
DX: J02.9 Acute pharyngitis, unspecified (principal); H92.03 Otalgia, bilateral
CPT/HCPCS: 99282; 99283

== ENCOUNTER 2018-01-09 08:40 | Emergency (ER) | payer MEDICAID, OTHER ==
[2018-01-09] MEDS ORDERED: Sodium Chloride 0.9% 2.5 ML Syringe FLUSH PRN (08:57)
[2018-01-09] MEDS ORDERED: Ondansetron 4 MG/2 ML SDV IVPUSH ONE (08:57)
[2018-01-09] MEDS ORDERED: Ketorolac 30 MG/ML SDV IVPUSH ONE (08:57)
[2018-01-09] MEDS ORDERED: Sodium Chloride 0.9% 10 ML Syringe FLUSH PRN (08:57)
[2018-01-09] MEDS ORDERED: Sodium Chloride 0.9% 1,000 ML IV ONE (08:57)
--- NOTE | 2018-01-09 09:02 | EDM.PDOC ---
ED HPI GENERAL MEDICAL PROBLEM - General Chief Complaint: General Stated Complaint: BODYACHES Time Seen by Provider: 01/09/18 08:53 - History of Present Illness INITIAL COMMENTS - FREE TEXT/NARRATIVE: HISTORY AND PHYSICAL: History of present illness: The patient is a 37-year-old female who has no GI or history other than 2 C- sections and no other abdominal surgical history and presents with 3 days of nausea vomiting and diarrhea body aches and generalized weakness. The patient says that other adults in her household are ill and she has not had a fever with this. She has a slight cough but she is a smoker she's not had runny nose or sore throat. She has had no urinary complaints. She says that the symptoms started with the nausea and vomiting and then progressed to the diarrhea which she is only having 3 times a day but it is watery and not black or bloody. She says she is having small volumes. She is unable to tolerate anything by mouth and only tried [id number] NyQuil but no specific GI meds. Never had any GI problems and she has not had any recent exotic travel or new foods. She says that she feels thirsty but cannot tolerate anything and she does feels rundown and weak. SHe has not passed out or blacked out and she denies any recent sexual intercourse and denies but did not have a period last month. She says that she has had diffuse abdominal tenderness likely secondary to the vomiting and diarrhea but there is no localization of this pain right or left upper or lower and it is just generalized Review of systems: As per history of present illness and below otherwise all systems reviewed and negative. Past medical history: As per history of present illness and as reviewed below otherwise noncontributory. Surgical history: As per history of present illness and as reviewed below otherwise noncontributory. Social history: No reported history of drug or alcohol abuse. Family history: As per history of present illness and as reviewed below otherwise noncontributory. Physical exam: General: Well-developed well-nourished woman who is nontoxic and moves easily in the ED. She overall is nontoxic but looks somewhat drained HEENT: Atraumatic, normocephalic, , negative for conjunctival pallor or scleral icterus, mucous membranes tacky throat clear, neck supple, nontender, trachea midline. Lungs: Clear to auscultation, breath sounds equal bilaterally, chest nontender. Heart: S1S2, regular rate and rhythm no overt murmurs Abdomen: Soft, nondistended, diffuse generalized minimal tenderness on deep palpation without any localization upper or lower right or left. Negative for masses or hepatosplenomegaly. Bowel sounds are slightly hypoactive Pelvis: Stable nontender. Genitourinary: Deferred. Rectal: Deferred. Extremities: Atraumatic, negative for cords or calf pain. Neurovascular unremarkable. Neuro: Awake, alert, oriented. Cranial nerves II through XII unremarkable. Cerebellum unremarkable. Motor and sensory unremarkable throughout. Exam nonfocal. Diagnostics: CBC CMP lipase UA UCG I will evaluate the stool if the patient produces to see if it is needing further testing Therapeutics: IV fluids Toradol Zofran SHe is feeling much improved in the ED and is now taking ice chips. I will give her Zofran and Bentyl for home. She has not produced a stool sample here for any form of study but advised her use [id number] antidiarrheals such as Imodium and to arrange follow-up Impression: Vomiting and diarrhea improving Definitive disposition and diagnosis as appropriate pending reevaluation and review of above. generalized Pain Score (Numeric/FACES): 3 - Related Data Allergies Allergy/AdvReac Type Severity Reaction Status Date / Time No Known Allergies Allergy Verified 01/09/18 08:47 Home Meds: Home Meds . 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: Surgery of her cervix, pt is unsure of what kind Musculoskeletal History: Reports: Back Pain, Chronic, Other (See Below) Other Musculoskeletal History: I&D of leg for MRSA...states was cleared Neurological History: Reports: None Psychiatric History: Reports: Depression Endocrine/Metabolic History: Reports: None Hematologic History: Reports: None Immunologic History: Reports: None Oncologic (Cancer) History: Other Oncologic History: melanoma of skin, rt arm Dermatologic History: Reports: Melanoma - Infectious Disease History Infectious Disease History: Reports: Chicken Pox, MRSA - Past Surgical History Head Surgeries/Procedures: Reports: None HEENT Surgical History: Reports: None Cardiovascular Surgical History: Reports: None Respiratory Surgical History: Reports: None GI Surgical History: Reports: None Female Surgical History: Reports: Section Endocrine Surgical History: Reports: None Neurological Surgical History: Reports: None Oncologic Surgical History: Reports: None Social & Family History - Family History Family Medical History: Noncontributory Respiratory: Reports: COPD - Tobacco Use Smoking Status *Q: Current Every Day Smoker Years of Tobacco use: 20 Packs/Tins Daily: 0.3 - Caffeine Use Caffeine Use: Reports: Coffee - Recreational Drug Use Recreational Drug Use: Yes Drug Use in Last 12 Months: No Recreational Drug Type: Reports: Marijuana/Hashish Recreational Drug Use Frequency: Not Used In Over 1 Year ED ROS GENERAL - Review of Systems Review Of Systems: ROS reveals no pertinent complaints other than HPI. ED EXAM, GENERAL - Physical Exam Exam: See Below (see dictation) Course - Vital Signs Last Recorded V/S: Last Vital Signs Temp 36.1 C 01/09/18 08:47 Pulse 91 01/09/18 08:47 Resp 16 01/09/18 08:47 BP 112/78 01/09/18 08:47 Pulse Ox 97 01/09/18 08:47 - Orders/Labs/Meds Orders: Active Orders 24 hr Category Date Time Status Communication Order [RC] STAT Care 01/09/18 08:57 Active HCG QUALITATIVE,URINE [URCHEM] Stat Lab 01/09/18 09:35 Ordered UA W/MICROSCOPIC [URIN] Stat Lab 01/09/18 09:35 Ordered Sodium Chloride 0.9% [Saline Flush] Med 01/09/18 08:57 Active 10 ml FLUSH ASDIRECTED PRN Sodium Chloride 0.9% [Saline Flush] Med 01/09/18 08:57 Active 2.5 ml FLUSH ASDIRECTED PRN Saline Lock Insert [OM.PC] Stat Oth 01/09/18 08:57 Ordered Medication Orders Sodium Chloride (Saline Flush) 10 ml FLUSH ASDIRECTED PRN PRN Reason: Keep Vein Open Sodium Chloride (Saline Flush) 2.5 ml FLUSH ASDIRECTED PRN PRN Reason: Keep Vein Open Labs: Laboratory Tests 01/09/18 01/09/1818 Range/Units 09:17 09:17 09:35 WBC 4.18 (4.0-11.0) K/uL RBC 4.62 (4.30-5.90) M/uL Hgb 14.6 (12.0-16.0) g/dL Hct 42.4 (36.0-46.0) % MCV 91.8 (80.0-98.0) fL MCH 31.6 (27.0-32.0) pg MCHC 34.4 (31.0-37.0) g/dL RDW Std Deviation 50.9 (28.0-62.0) fl RDW Coeff of Gamal 15 (11.0-15.0) % Plt Count 175 (150-400) K/uL MPV 10.80 (7.40-12.00) fL Neut % (Auto) 57.9 (48.0-80.0) % Lymph % (Auto) 29.2 (16.0-40.0) % Ponce % (Auto) 12.0 (0.0-15.0) % Eos % (Auto) 0.7 (0.0-7.0) % Baso % (Auto) 0.2 (0.0-1.5) % Neut # (Auto) 2.4 (1.4-5.7) K/uL Lymph # (Auto) 1.2 (0.6-2.4) K/uL Ponce # (Auto) 0.5 (0.0-0.8) K/uL Eos # (Auto) 0.0 (0.0-0.7) K/uL Baso # (Auto) 0.0 (0.0-0.1) K/uL Nucleated RBC % 0.0 /100WBC Nucleated RBCs # 0 K/uL Sodium 137 (136-145) mmol/L Potassium 4.0 (3.5-5.1) mmol/L Chloride 104 (98-107) mmol/L Carbon Dioxide 25.8 (21.0-32.0) mmol/L BUN 9 (7.0-18.0) mg/dL Creatinine 0.8 (0.6-1.0) mg/dL Est Cr Clr Drug Dosing 101.60 mL/min Estimated GFR (MDRD) > 60.0 ml/min Glucose 90 (74-106) mg/dL Calcium 8.6 (8.5-10.1) mg/dL Total Bilirubin 0.3 (0.2-1.0) mg/dL AST 12 L (15-37) IU/L ALT 26 (14-63) IU/L Alkaline Phosphatase 93 (46-116) U/L Total Protein 7.4 (6.4-8.2) g/dL Albumin 3.6 (3.4-5.0) g/dL Globulin 3.8 H (2.0-3.5) g/dL Albumin/Globulin Ratio 1.0 L (1.3-2.8) Lipase 100 (73-393) U/L Urine Color YELLOW Urine Appearance CLEAR Urine pH 6.0 (5.0-8.0) Ur Specific [place] >= 1.030 (1.001-1.035) Urine Protein NEGATIVE (NEGATIVE) mg/dL Urine Glucose (UA) NEGATIVE (NEGATIVE) mg/dL Urine Ketones NEGATIVE (NEGATIVE) mg/dL Urine Occult Blood TRACE-INTACT (NEGATIVE) Urine Nitrite NEGATIVE (NEGATIVE) Urine Bilirubin NEGATIVE (NEGATIVE) Urine Urobilinogen 0.2 (<2.0) EU/dL Ur Leukocyte Esterase NEGATIVE (NEGATIVE) Urine RBC 3-4 (0-2/HPF) Urine WBC 1-2 (0-5/HPF) Ur Epithelial Cells MANY (NONE-FEW) Urine Bacteria FEW (NEGATIVE) Urine Mucus HEAVY (NONE-MOD) Urine HCG, Qual (NEGATIVE) 01/09/18 Range/Units 09:35 WBC (4.0-11.0) K/uL RBC (4.30-5.90) M/uL Hgb (12.0-16.0) g/dL Hct (36.0-46.0) % MCV (80.0-98.0) fL MCH (27.0-32.0) pg MCHC (31.0-37.0) g/dL RDW Std Deviation (28.0-62.0) fl RDW Coeff of Gamal (11.0-15.0) % Plt Count (150-400) K/uL MPV (7.40-12.00) fL Neut % (Auto) (48.0-80.0) % Lymph % (Auto) (16.0-40.0) % Ponce % (Auto) (0.0-15.0) % Eos % (Auto) (0.0-7.0) % Baso % (Auto) (0.0-1.5) % Neut # (Auto) (1.4-5.7) K/uL Lymph # (Auto) (0.6-2.4) K/uL Ponce # (Auto) (0.0-0.8) K/uL Eos # (Auto) (0.0-0.7) K/uL Baso # (Auto) (0.0-0.1) K/uL Nucleated RBC % /100WBC Nucleated RBCs # K/uL Sodium (136-145) mmol/L Potassium (3.5-5.1) mmol/L Chloride (98-107) mmol/L Carbon Dioxide (21.0-32.0) mmol/L BUN (7.0-18.0) mg/dL Creatinine (0.6-1.0) mg/dL Est Cr Clr Drug Dosing mL/min Estimated GFR (MDRD) ml/min Glucose (74-106) mg/dL Calcium (8.5-10.1) mg/dL Total Bilirubin (0.2-1.0) mg/dL AST (15-37) IU/L ALT (14-63) IU/L Alkaline Phosphatase (46-116) U/L Total Protein (6.4-8.2) g/dL Albumin (3.4-5.0) g/dL Globulin (2.0-3.5) g/dL Albumin/Globulin Ratio (1.3-2.8) Lipase (73-393) U/L Urine Color Urine Appearance Urine pH (5.0-8.0) Ur Specific [place] (1.001-1.035) Urine Protein (NEGATIVE) mg/dL Urine Glucose (UA) (NEGATIVE) mg/dL Urine Ketones (NEGATIVE) mg/dL Urine Occult Blood (NEGATIVE) Urine Nitrite (NEGATIVE) Urine Bilirubin (NEGATIVE) Urine Urobilinogen (<2.0) EU/dL Ur Leukocyte Esterase (NEGATIVE) Urine RBC (0-2/HPF) Urine WBC (0-5/HPF) Ur Epithelial Cells (NONE-FEW) Urine Bacteria (NEGATIVE) Urine Mucus (NONE-MOD) Urine HCG, Qual NEGATIVE (NEGATIVE) Meds: Medications Generic Name Dose Route Start Last Admin Trade Name Freq PRN Reason Stop Dose Admin Sodium Chloride 10 ml 01/09/18 08:57 Saline Flush FLUSH ASDIRECTED PRN Keep Vein Open Sodium Chloride 2.5 ml 01/09/18 08:57 Saline Flush FLUSH ASDIRECTED PRN Keep Vein Open Discontinued Medications Generic Name Dose Route Start Last Admin Trade Name Freq PRN Reason Stop Dose Admin Sodium Chloride 1,000 mls @ 999 mls/hr 01/09/18 08:57 01/09/18 09:20 Normal Saline IV 01/09/18 09:57 999 mls/hr STAT ONE Administration Ketorolac Tromethamine 30 mg 01/09/18 08:57 01/09/18 09:21 Toradol IVPUSH 01/09/18 08:58 30 mg ONETIME ONE Administration Ondansetron HCl 4 mg 01/09/18 08:57 01/09/18 09:21 Zofran IVPUSH 01/09/18 08:58 4 mg ONETIME ONE Administration Departure - Departure Time of Disposition: 10:11 Disposition: Home, Self-Care 01 Condition: Good Clinical Impression: Nausea vomiting and diarrhea - Discharge Information Referrals: PCP,None [Primary Care Provider] - Forms: ED Department Discharge Additional Instructions: The following information is given to patients seen in the emergency department who are being discharged to home. This information is to outline your options for follow-up care. We provide all patients seen in our emergency department with a follow-up referral. The need for follow-up, as well as the timing and circumstances, are variable depending upon the specifics of your emergency department visit. If you don't have a primary care physician on staff, we will provide you with a referral. We always advise you to contact your personal physician following an emergency department visit to inform them of the circumstance of the visit and for follow-up with them and/or the need for any referrals to a consulting specialist. The emergency department will also refer you to a specialist when appropriate. This referral assures that you have the opportunity for followup care with a specialist. All of these measure are taken in an effort to provide you with optimal care, which includes your followup. Under all circumstances we always encourage you to contact your private physician who remains a resource for coordinating your care. When calling for followup care, please make the office aware that this follow-up is from your recent emergency room visit. If for any reason you are refused follow-up, please contact the [facility] emergency department at and ask to speak to the emergency department charge nurse. [facility] Primary [facility]- Internal Medicine and [place] [id number] [place] [id number] Push hydration such as small sips of clear liquids and bland bites. Use Zofran as needed for nausea and vomiting and take Bentyl for cramping from the diarrhea. You may use [id number] antidiarrheal medications as you choose. Please call and schedule a follow-up appointment with a provider in the clinic and return to ER as needed and as discussed. The symptoms will gradually improve over the next few days - My Orders Last 24 Hours: My Active Orders 01/09/18 08:57 Communication Order [RC] STAT Sodium Chloride 0.9% [Saline Flush] 10 ml FLUSH ASDIRECTED PRN Sodium Chloride 0.9% [Saline Flush] 2.5 ml FLUSH ASDIRECTED PRN Saline Lock Insert [OM.PC] Stat 01/09/18 09:35 HCG QUALITATIVE,URINE [URCHEM] Stat UA W/MICROSCOPIC [URIN] Stat - Assessment/Plan Last 24 Hours: My Active Orders 01/09/18 08:57 Communication Order [RC] STAT Sodium Chloride 0.9% [Saline Flush] 10 ml FLUSH ASDIRECTED PRN Sodium Chloride 0.9% [Saline Flush] 2.5 ml FLUSH ASDIRECTED PRN Saline Lock Insert [OM.PC] Stat 01/09/18 09:35 HCG QUALITATIVE,URINE [URCHEM] Stat UA W/MICROSCOPIC [URIN] Stat
[2018-01-09 09:51] LABS: CHLORIDE,CL 104 mmol/L (98-107); SODIUM,NA 137 mmol/L (136-145)
[2018-01-09 10:39] VITALS: BP 121/77
== END 2018-01-09 10:39 | disposition home or self-care (01) ==
LOC: MW.ED 08:40
DX: R11.2 Nausea with vomiting, unspecified (principal); R19.7 Diarrhea, unspecified; F17.210 Nicotine dependence, cigarettes, uncomplicated
CPT/HCPCS: 36415; 80053; 81001; 81025; 83690; 85025; 96361; 96374; 96375; 99283; J1885; J2405; J7040

== ENCOUNTER 2018-07-11 09:23 | Emergency (ER) | payer SELFPAY ==
[2018-07-11 09:39] VITALS: BP 120/77
--- NOTE | 2018-07-11 09:59 | EDM.PDOC ---
ED HPI GENERAL MEDICAL PROBLEM - General Chief Complaint: ENT Problem Stated Complaint: SORE THROAT Time Seen by Provider: 07/11/18 09:33 - History of Present Illness INITIAL COMMENTS - FREE TEXT/NARRATIVE: HISTORY AND PHYSICAL: History of present illness: The patient is a 37-year-old female who presents with 3 days of a sore throat without fevers chills cough or upper respiratory symptoms. The patient is here as a patient in the ED with her 2 and a [id number]-[id number]-mug child, who is also a patient here, and says she did not get her influenza shot this year. She denies and has no abdominal complaints vomiting but has had greenish stools that are not diarrhea. She's had an occasional low-grade temp but no discrete cough runny nose head neck or back pain. The patient did not have a tonsillectomy and says that there is pain mostly with swallowing and speaking. She is able to hydrate and eat but there is some discomfort but she is able to tolerate. Review of systems: As per history of present illness and below otherwise all systems reviewed and negative. Past medical history: As per history of present illness and as reviewed below otherwise noncontributory. Surgical history: As per history of present illness and as reviewed below otherwise noncontributory. Social history: No reported history of drug or alcohol abuse. Family history: As per history of present illness and as reviewed below otherwise noncontributory. Physical exam: General: Well-developed well-nourished female who is nontoxic and vital signs are reviewed by me. Her voice is not hoarse or muffled and she is not breathless. HEENT: Atraumatic, normocephalic, pupils reactive, negative for conjunctival pallor or scleral icterus, mucous membranes moist, throat clear of exudates and swelling but there is posterior crypt oral pharyngeal erythema, uvula is midline , there is no cervical adenopathy or nuchal rigidity, neck supple, nontender, trachea midline. Lungs: Clear to auscultation, breath sounds equal bilaterally, chest nontender. Heart: S1S2, regular rate and rhythm no overt murmurs Abdomen: Soft, nondistended, nontender. NABS Pelvis: Deferred Genitourinary: Deferred. Rectal: Deferred. Extremities: Atraumatic, full range of motion without defects or deficits Neurovascular unremarkable. Neuro: Awake, alert, oriented. Cranial nerves II through XII unremarkable. Cerebellum unremarkable. Motor and sensory unremarkable throughout. Exam nonfocal. Diagnostics: Rapid strep influenza Therapeutics: [] Impression: Strep pharyngitis Definitive disposition and diagnosis as appropriate pending reevaluation and review of above. Throat Pain Score (Numeric/FACES): 6 - Related Data Allergies Allergy/AdvReac Type Severity Reaction Status Date / Time No Known Allergies Allergy Verified 07/11/18 09:33 Home Meds: Home Meds . 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: Surgery of her cervix, pt is unsure of what kind Musculoskeletal History: Reports: Back Pain, Chronic, Other (See Below) Other Musculoskeletal History: I&D of leg for MRSA...states was cleared Neurological History: Reports: None Psychiatric History: Reports: Depression Endocrine/Metabolic History: Reports: None Hematologic History: Reports: None Immunologic History: Reports: None Oncologic (Cancer) History: Other Oncologic History: melanoma of skin, rt arm Dermatologic History: Reports: Melanoma - Infectious Disease History Infectious Disease History: Reports: MRSA - Past Surgical History Head Surgeries/Procedures: Reports: None HEENT Surgical History: Reports: None Cardiovascular Surgical History: Reports: None Respiratory Surgical History: Reports: None GI Surgical History: Reports: None Female Surgical History: Reports: Section Endocrine Surgical History: Reports: None Neurological Surgical History: Reports: None Oncologic Surgical History: Reports: None Social & Family History - Family History Family Medical History: Noncontributory Respiratory: Reports: COPD - Tobacco Use Smoking Status *Q: Current Every Day Smoker Years of Tobacco use: 15 Packs/Tins Daily: 1 - Caffeine Use Caffeine Use: Reports: Coffee - Recreational Drug Use Recreational Drug Use: No ED ROS GENERAL - Review of Systems Review Of Systems: ROS reveals no pertinent complaints other than HPI. ED EXAM, GENERAL - Physical Exam Exam: See Below (See dictation) Course - Vital Signs Last Recorded V/S: Last Vital Signs Temp 36.5 C 07/11/18 09:33 Pulse 95 07/11/18 09:33 Resp 18 07/11/18 09:33 BP 120/77 07/11/18 09:33 Pulse Ox 95 07/11/18 09:33 Departure - Departure Time of Disposition: 10:56 Disposition: Home, Self-Care 01 Condition: Good Clinical Impression: Strep pharyngitis - Discharge Information Referrals: Sita Pacheco [employer] [Primary Care Provider] - Forms: ED Department Discharge Additional Instructions: The following information is given to patients seen in the emergency department who are being discharged to home. This information is to outline your options for follow-up care. We provide all patients seen in our emergency department with a follow-up referral. The need for follow-up, as well as the timing and circumstances, are variable depending upon the specifics of your emergency department visit. If you don't have a primary care physician on staff, we will provide you with a referral. We always advise you to contact your personal physician following an emergency department visit to inform them of the circumstance of the visit and for follow-up with them and/or the need for any referrals to a consulting specialist. The emergency department will also refer you to a specialist when appropriate. This referral assures that you have the opportunity for followup care with a specialist. All of these measure are taken in an effort to provide you with optimal care, which includes your followup. Under all circumstances we always encourage you to contact your private physician who remains a resource for coordinating your care. When calling for followup care, please make the office aware that this follow-up is from your recent emergency room visit. If for any reason you are refused follow-up, please contact the [facility] emergency department at and ask to speak to the emergency department charge nurse. [address] [place] [address] Please contact and follow-up with your provider at [facility] as we discussed in the next few days for reevaluation and further care. Push hydration and avoid caffeinated products. Use [id number] medication for symptoms as you choose and rest as much as possible. Take antibiotics that you have been prescribed and as directed until they are finished. Return to ER as needed and as discussed
== END 2018-07-11 11:10 | disposition home or self-care (01) ==
LOC: MW.ED 09:23
DX: J02.0 Streptococcal pharyngitis (principal); F17.210 Nicotine dependence, cigarettes, uncomplicated
CPT/HCPCS: 87804; 87880-QW; 99283

== ENCOUNTER 2018-10-28 09:19 | Emergency (ER) | payer SELFPAY ==
[2018-10-28 09:38] VITALS: BP 130/78
[2018-10-28] MEDS ORDERED: Sodium Chloride 0.9% 1,000 ML IV SCH (09:45)
--- NOTE | 2018-10-28 09:45 | EDM.PDOC ---
ED HPI GENERAL MEDICAL PROBLEM - General Chief Complaint: General Stated Complaint: KNOT ON THROAT/SWOLLEN TOUNGE Time Seen by Provider: 10/28/18 09:44 Source of Information: Reports: Patient - History of Present Illness INITIAL COMMENTS - FREE TEXT/NARRATIVE: HISTORY AND PHYSICAL: History of present illness: [Patient presents with lump sensation in submandibular area, she has no muffled voice drooling or trismus no fever nausea vomiting chills sweats On exam it is firm in the submandibular region no redness warmth or fluctuance some prominence noted ] Review of systems: As per history of present illness and below otherwise all systems reviewed and negative. Past medical history: As per history of present illness and as reviewed below otherwise noncontributory. Surgical history: As per history of present illness and as reviewed below otherwise noncontributory. Social history: No reported history of drug or alcohol abuse. Family history: As per history of present illness and as reviewed below otherwise noncontributory. Physical exam: HEENT: Atraumatic, normocephalic, pupils reactive, negative for conjunctival pallor or scleral icterus, mucous membranes moist, throat clear, neck supple, nontender, trachea midline. Lungs: Clear to auscultation, breath sounds equal bilaterally, chest nontender. Heart: S1S2, regular, negative for clicks, rubs, or JVD. Abdomen: Soft, nondistended, nontender. Negative for masses or hepatosplenomegaly. Negative for costovertebral tenderness. Pelvis: Stable nontender. Genitourinary: Deferred. Rectal: Deferred. Extremities: Atraumatic, negative for cords or calf pain. Neurovascular unremarkable. Neuro: Awake, alert, oriented. Cranial nerves II through XII unremarkable. Cerebellum unremarkable. Motor and sensory unremarkable throughout. Exam nonfocal. Diagnostics: [CBC CMP UA hCG CT soft tissue neck with contrast ] Therapeutics: [Normal saline ] Cipro Nystatin Impression: [Reactive lymph node ] Definitive disposition and diagnosis as appropriate pending reevaluation and review of above. Throat Pain Score (Numeric/FACES): 8 - Related Data Allergies Allergy/AdvReac Type Severity Reaction Status Date / Time No Known Allergies Allergy Verified 10/28/18 09:35 Home Meds: Home Meds . [No Known Home Meds] 10/28/18 [History] Past Medical History - Past Health History Medical/Surgical History: Denies Medical/Surgical History HEENT History: Reports: Other (See Below) Other HEENT History: has upper dentures Cardiovascular History: Reports: None Respiratory History: Reports: None Gastrointestinal History: Reports: None Genitourinary History: Reports: STD DELIVERY HELPER History: Reports: , Spontaneous Other DELIVERY HELPER History: Surgery of her cervix, pt is unsure of what kind Musculoskeletal History: Reports: Back Pain, Chronic, Other (See Below) Other Musculoskeletal History: I&D of leg for MRSA...states was cleared Neurological History: Reports: None Psychiatric History: Reports: Depression Endocrine/Metabolic History: Reports: None Hematologic History: Reports: None Immunologic History: Reports: None Oncologic (Cancer) History: Other Oncologic History: melanoma of skin, rt arm Dermatologic History: Reports: Melanoma - Infectious Disease History Infectious Disease History: Reports: None - Past Surgical History Head Surgeries/Procedures: Reports: None HEENT Surgical History: Reports: None Cardiovascular Surgical History: Reports: None Respiratory Surgical History: Reports: None GI Surgical History: Reports: None Female Surgical History: Reports: Section Endocrine Surgical History: Reports: None Neurological Surgical History: Reports: None Oncologic Surgical History: Reports: None Social & Family History - Family History Family Medical History: Noncontributory Respiratory: Reports: COPD - Tobacco Use Smoking Status *Q: Current Every Day Smoker Years of Tobacco use: 25 Packs/Tins Daily: 1 - Caffeine Use Caffeine Use: Reports: None - Recreational Drug Use Recreational Drug Use: No ED ROS GENERAL - Review of Systems Review Of Systems: See Below ED EXAM, GENERAL - Physical Exam Exam: See Below Course - Vital Signs Last Recorded V/S: Last Vital Signs Temp 97.6 F 10/28/18 09:35 Pulse 85 10/28/18 09:35 Resp 16 10/28/18 09:35 BP 130/78 10/28/18 09:35 Pulse Ox 97 10/28/18 09:35 - Orders/Labs/Meds Orders: Active Orders 24 hr Category Date Time Status CULTURE BLOOD [BC] Stat Lab 10/28/18 10:55 Received CULTURE BLOOD [BC] Stat Lab 10/28/18 11:05 Received Sodium Chloride 0.9% [Normal Saline] 1,000 ml Med 10/28/18 09:45 Active IV STAT Blood Culture x2 Reflex Set [OM.PC] Stat Oth 10/28/18 09:44 Ordered Medication Orders Sodium Chloride (Normal Saline) 1,000 mls @ 125 mls/hr IV STAT SARIAH Last Admin: 10/28/18 11:25 Dose: 125 mls/hr Labs: Laboratory Tests 10/28/18 10/28/18 10/28/18 Range/Units 10:55 10:55 12:00 WBC 6.08 (4.0-11.0) K/uL RBC 4.66 (4.30-5.90) M/uL Hgb 14.3 (12.0-16.0) g/dL Hct 42.7 (36.0-46.0) % MCV 91.6 (80.0-98.0) fL MCH 30.7 (27.0-32.0) pg MCHC 33.5 (31.0-37.0) g/dL RDW Std Deviation 51.0 (28.0-62.0) fl RDW Coeff of Gamal 15 (11.0-15.0) % Plt Count 211 (150-400) K/uL MPV 11.20 (7.40-12.00) fL Neut % (Auto) 64.6 (48.0-80.0) % Lymph % (Auto) 25.8 (16.0-40.0) % [place] % (Auto) 8.4 (0.0-15.0) % Eos % (Auto) 1.0 (0.0-7.0) % Baso % (Auto) 0.2 (0.0-1.5) % Neut # (Auto) 3.9 (1.4-5.7) K/uL Lymph # (Auto) 1.6 (0.6-2.4) K/uL [place] # (Auto) 0.5 (0.0-0.8) K/uL Eos # (Auto) 0.1 (0.0-0.7) K/uL Baso # (Auto) 0.0 (0.0-0.1) K/uL Nucleated RBC % 0.0 /100WBC Nucleated RBCs # 0 K/uL Sodium 135 L (136-145) mmol/L Potassium 4.1 (3.5-5.1) mmol/L Chloride 103 (98-107) mmol/L Carbon Dioxide 24.9 (21.0-32.0) mmol/L BUN 10 (7.0-18.0) mg/dL Creatinine 0.8 (0.6-1.0) mg/dL Est Cr Clr Drug Dosing 101.60 mL/min Estimated GFR (MDRD) > 60.0 ml/min Glucose 95 (74-106) mg/dL Calcium 8.6 (8.5-10.1) mg/dL Total Bilirubin 0.4 (0.2-1.0) mg/dL AST 10 L (15-37) IU/L ALT 24 (14-63) IU/L Alkaline Phosphatase 89 (46-116) U/L Total Protein 7.4 (6.4-8.2) g/dL Albumin 3.7 (3.4-5.0) g/dL Globulin 3.7 (2.6-4.0) g/dL Albumin/Globulin Ratio 1.0 (0.9-1.6) Urine Color YELLOW Urine Appearance SLT CLOUDY Urine pH 6.0 (5.0-8.0) Ur Specific [place] 1.025 (1.001-1.035) Urine Protein NEGATIVE (NEGATIVE) mg/dL Urine Glucose (UA) NEGATIVE (NEGATIVE) mg/dL Urine Ketones NEGATIVE (NEGATIVE) mg/dL Urine Occult Blood TRACE-LYSED H (NEGATIVE) Urine Nitrite NEGATIVE (NEGATIVE) Urine Bilirubin NEGATIVE (NEGATIVE) Urine Urobilinogen 0.2 (<2.0) EU/dL Ur Leukocyte Esterase NEGATIVE (NEGATIVE) Urine RBC 0-1 (0-2/HPF) Urine WBC 0-2 (0-5/HPF) Ur Epithelial Cells MODERATE (NONE-FEW) Urine Bacteria RARE (NEGATIVE) Urine Mucus LIGHT (NONE-MOD) Urine HCG, Qual (NEGATIVE) 10/28/18 Range/Units 12:00 WBC (4.0-11.0) K/uL RBC (4.30-5.90) M/uL Hgb (12.0-16.0) g/dL Hct (36.0-46.0) % MCV (80.0-98.0) fL MCH (27.0-32.0) pg MCHC (31.0-37.0) g/dL RDW Std Deviation (28.0-62.0) fl RDW Coeff of Gamal (11.0-15.0) % Plt Count (150-400) K/uL MPV (7.40-12.00) fL Neut % (Auto) (48.0-80.0) % Lymph % (Auto) (16.0-40.0) % [place] % (Auto) (0.0-15.0) % Eos % (Auto) (0.0-7.0) % Baso % (Auto) (0.0-1.5) % Neut # (Auto) (1.4-5.7) K/uL Lymph # (Auto) (0.6-2.4) K/uL [place] # (Auto) (0.0-0.8) K/uL Eos # (Auto) (0.0-0.7) K/uL Baso # (Auto) (0.0-0.1) K/uL Nucleated RBC % /100WBC Nucleated RBCs # K/uL Sodium (136-145) mmol/L Potassium (3.5-5.1) mmol/L Chloride (98-107) mmol/L Carbon Dioxide (21.0-32.0) mmol/L BUN (7.0-18.0) mg/dL Creatinine (0.6-1.0) mg/dL Est Cr Clr Drug Dosing mL/min Estimated GFR (MDRD) ml/min Glucose (74-106) mg/dL Calcium (8.5-10.1) mg/dL Total Bilirubin (0.2-1.0) mg/dL AST (15-37) IU/L ALT (14-63) IU/L Alkaline Phosphatase (46-116) U/L Total Protein (6.4-8.2) g/dL Albumin (3.4-5.0) g/dL Globulin (2.6-4.0) g/dL Albumin/Globulin Ratio (0.9-1.6) Urine Color Urine Appearance Urine pH (5.0-8.0) Ur Specific [place] (1.001-1.035) Urine Protein (NEGATIVE) mg/dL Urine Glucose (UA) (NEGATIVE) mg/dL Urine Ketones (NEGATIVE) mg/dL Urine Occult Blood (NEGATIVE) Urine Nitrite (NEGATIVE) Urine Bilirubin (NEGATIVE) Urine Urobilinogen (<2.0) EU/dL Ur Leukocyte Esterase (NEGATIVE) Urine RBC (0-2/HPF) Urine WBC (0-5/HPF) Ur Epithelial Cells (NONE-FEW) Urine Bacteria (NEGATIVE) Urine Mucus (NONE-MOD) Urine HCG, Qual NEGATIVE (NEGATIVE) Meds: Medications Generic Name Dose Route Start Last Admin Trade Name Freq PRN Reason Stop Dose Admin Sodium Chloride 1,000 mls @ 125 mls/hr 10/28/18 09:45 10/28/18 11:25 Normal Saline IV 125 mls/hr STAT SARIAH Administration Discontinued Medications Generic Name Dose Route Start Last Admin Trade Name Freq PRN Reason Stop Dose Admin Iopamidol 80 ml 10/28/18 12:12 10/28/18 12:24 Isovue Multipack-370 (76%) IVPUSH 10/28/18 12:13 80 ml ONETIME STA Administration Departure - Departure Time of Disposition: 12:50 Disposition: Home, Self-Care 01 Condition: Good Clinical Impression: Lymph node enlargement - Discharge Information Referrals: Sita Pacheco NP [Primary Care Provider] - Forms: ED Department Discharge Additional Instructions: Medication as prescribed Return if symptoms persist or worsen 24 hours off work follow-up with primary care in 2 weeks sooner as needed [facility] - [facility] [address] [place] [address] The following information is given to patients seen in the emergency department who are being discharged to home. This information is to outline your options for follow-up care. We provide all patients seen in our emergency department with a follow-up referral. The need for follow-up, as well as the timing and circumstances, are variable depending upon the specifics of your emergency department visit. If you don't have a primary care physician on staff, we will provide you with a referral. We always advise you to contact your personal physician following an emergency department visit to inform them of the circumstance of the visit and for follow-up with them and/or the need for any referrals to a consulting specialist. The emergency department will also refer you to a specialist when appropriate. This referral assures that you have the opportunity for follow-up care with a specialist. All of these measure are taken in an effort to provide you with optimal care, which includes your follow-up. Under all circumstances we always encourage you to contact your private physician who remains a resource for coordinating your care. When calling for follow-up care, please make the office aware that this follow-up is from your recent emergency room visit. If for any reason you are refused follow-up, please contact the [facility] emergency department at and asked to speak to the emergency department charge nurse. - My Orders Last 24 Hours: My Active Orders 10/28/18 09:44 Blood Culture x2 Reflex Set [OM.PC] Stat 10/28/18 09:45 Sodium Chloride 0.9% [Normal Saline] 1,000 ml IV STAT 10/28/18 10:55 CULTURE BLOOD [BC] Stat 10/28/18 11:05 CULTURE BLOOD [BC] Stat - Assessment/Plan Last 24 Hours: My Active Orders 10/28/18 09:44 Blood Culture x2 Reflex Set [OM.PC] Stat 10/28/18 09:45 Sodium Chloride 0.9% [Normal Saline] 1,000 ml IV STAT 10/28/18 10:55 CULTURE BLOOD [BC] Stat 10/28/18 11:05 CULTURE BLOOD [BC] Stat
[2018-10-28 11:40] LABS: CHLORIDE,CL 103 mmol/L (98-107); SODIUM,NA 135 mmol/L (136-145)
[2018-10-28] MEDS ORDERED: Iopamidol 755 MG/ML 500 ML Multipack Bottle IVPUSH STA (12:12)
--- NOTE | 2018-10-28 12:35 | CT ---
EXAMINATION: CT soft tissue neck with contrast HISTORY: Swelling COMPARISON: None TECHNIQUE: Axial CT imaging obtained through the neck following the administration of 80 mL of Isovue-370 in the right arm. Coronal and sagittal reconstructions obtained. FINDINGS: Mastoid air cells, middle ears, and paranasal sinuses are clear. Orbits and globes are symmetric. The oropharyngeal and nasopharyngeal mucosal structures are symmetric. Mildly prominent 8 mm submandibular lymph node noted within the region of concern. No bulky cervical lymphadenopathy. Parotid and submandibular glands appear normal. Lung apices are clear. Visualized osseous structures appear normal. IMPRESSION: 1. Mildly prominent, nonpathologically enlarged submandibular lymph node noted within the region of concern. Given the size this is most likely reactive.
== END 2018-10-28 13:30 | disposition home or self-care (01) ==
LOC: MW.ED 09:19
DX: R59.0 Localized enlarged lymph nodes (principal)
CPT/HCPCS: 36415; 70491; 80053; 81001; 81025; 85025; 87040; 96360; 96361; 99283; J7040; Q9967

== ENCOUNTER 2019-02-25 18:09 | Emergency (ER) | payer SELFPAY ==
--- NOTE | 2019-02-25 18:27 | EDM.PDOC ---
ED HPI GENERAL MEDICAL PROBLEM - General Chief Complaint: General Stated Complaint: NOT FEELING WELL Time Seen by Provider: 02/25/19 18:26 Source of Information: Reports: Patient History Limitations: Reports: No Limitations - History of Present Illness INITIAL COMMENTS - FREE TEXT/NARRATIVE: HISTORY AND PHYSICAL: History of present illness: Patient is a 38-year-old female presents to the ED with complaint of cold symptoms x 2 days. She is 14 weeks gestation. States she has had nasal congestion, sinus pressure, cough, sore throat. She denies chest pain, shortness of breath, fevers, chills, abdominal pain, vaginal bleeding or discharge. She states she did vomit this morning but has had morning sickness with . She does smoke 1/2 ppd. Denies significant past medical history. Review of systems: As per history of present illness and below otherwise all systems reviewed and negative. Past medical history: As per history of present illness and as reviewed below otherwise noncontributory. Surgical history: As per history of present illness and as reviewed below otherwise noncontributory. Social history: No reported history of drug or alcohol abuse. Family history: As per history of present illness and as reviewed below otherwise noncontributory. Physical exam: General: Patient sitting comfortably in no acute distress and nontoxic appearing HEENT: Atraumatic, normocephalic, pupils reactive, negative for conjunctival pallor or scleral icterus, mucous membranes moist, throat clear, neck supple, nontender, trachea midline. No meningeal signs. Lungs: Clear to auscultation, breath sounds equal bilaterally, chest nontender. Heart: S1S2, regular, negative for clicks, rubs, or overt murmur. Abdomen: Soft, nondistended, nontender. Negative for masses or hepatosplenomegaly. Negative for costovertebral tenderness. No rigidity, rebound , guarding. Pelvis: Stable nontender. Genitourinary: Deferred. Rectal: Deferred. Extremities: Atraumatic, negative for cords or calf pain. Neurovascular unremarkable. Neuro: Awake, alert, oriented. Cranial nerves II through XII unremarkable. Cerebellum unremarkable. Motor and sensory unremarkable throughout. Exam nonfocal. 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 - Related Data Allergies Allergy/AdvReac Type Severity Reaction Status Date / Time No Known Allergies Allergy Verified 02/25/19 18:22 Home Meds: Home Meds . [No Known Home Meds] 10/28/18 [History] Past Medical History - Past Health History Medical/Surgical History: Denies Medical/Surgical History HEENT History: Reports: Other (See Below) Other HEENT History: has upper dentures Cardiovascular History: Reports: None Respiratory History: Reports: None Gastrointestinal History: Reports: None Genitourinary History: Reports: STD POSTAL CARRIER History: Reports: , Spontaneous Other POSTAL CARRIER History: Surgery of her cervix, pt is unsure of what kind Musculoskeletal History: Reports: Back Pain, Chronic, Other (See Below) Other Musculoskeletal History: I&D of leg for MRSA...states was cleared Neurological History: Reports: None Psychiatric History: Reports: Depression Endocrine/Metabolic History: Reports: None Hematologic History: Reports: None Immunologic History: Reports: None Oncologic (Cancer) History: Other Oncologic History: melanoma of skin, rt arm Dermatologic History: Reports: Melanoma - Infectious Disease History Infectious Disease History: Reports: None - Past Surgical History Head Surgeries/Procedures: Reports: None HEENT Surgical History: Reports: None Cardiovascular Surgical History: Reports: None Respiratory Surgical History: Reports: None GI Surgical History: Reports: None Female Surgical History: Reports: Section Endocrine Surgical History: Reports: None Neurological Surgical History: Reports: None Oncologic Surgical History: Reports: None Social & Family History - Family History Family Medical History: Noncontributory Respiratory: Reports: COPD - Tobacco Use Smoking Status *Q: Current Every Day Smoker Years of Tobacco use: 22 Packs/Tins Daily: 0.5 - Caffeine Use Caffeine Use: Reports: Coffee - Recreational Drug Use Recreational Drug Use: No ED ROS GENERAL - Review of Systems Review Of Systems: ROS reveals no pertinent complaints other than HPI. ED EXAM, GENERAL - Physical Exam Exam: See Below (see dictation) Course - Vital Signs Last Recorded V/S: Last Vital Signs Temp 97.2 F 02/25/19 19:50 Pulse 92 02/25/19 19:50 Resp 18 02/25/19 19:50 BP 109/75 02/25/19 19:50 Pulse Ox 97 02/25/19 19:50 - Orders/Labs/Meds Orders: Active Orders 24 hr Category Date Time Status CULTURE STREP A CONFIRMATION [RM] Stat Lab 02/25/19 18:30 Results STREP SCRN A RAPID W CULT CONF [RM] Stat Lab 02/25/19 18:30 Results Labs: Laboratory Tests 02/25/19 Range/Units 18:40 Urine Color YELLOW Urine Appearance SLT CLOUDY Urine pH 6.5 (5.0-8.0) Ur Specific [place] 1.020 (1.001-1.035) Urine Protein NEGATIVE (NEGATIVE) mg/dL Urine Glucose (UA) NEGATIVE (NEGATIVE) mg/dL Urine Ketones 40 H (NEGATIVE) mg/dL Urine Occult Blood TRACE-INTACT H (NEGATIVE) Urine Nitrite NEGATIVE (NEGATIVE) Urine Bilirubin SMALL H (NEGATIVE) Urine Ictotest NEGATIVE Urine Urobilinogen 2.0 H (<2.0) EU/dL Ur Leukocyte Esterase NEGATIVE (NEGATIVE) Urine RBC 1-3 (0-2/HPF) Urine WBC 0-2 (0-5/HPF) Ur Epithelial Cells FEW (NONE-FEW) Urine Bacteria FEW (NEGATIVE) Urine Mucus MODERATE (NONE-MOD) Departure - Departure Time of Disposition: 19:28 Disposition: Home, Self-Care 01 Condition: Good Clinical Impression: Upper respiratory infection - Discharge Information Instructions: Upper Respiratory Infection, Adult, [id number] Referrals: PCP,None [Primary Care Provider] - Forms: ED Department Discharge Additional Instructions: The following information is given to patients seen in the emergency department who are being discharged to home. This information is to outline your options for follow-up care. We provide all patients seen in our emergency department with a follow-up referral. The need for follow-up, as well as the timing and circumstances, are variable depending upon the specifics of your emergency department visit. If you don't have a primary care physician on staff, we will provide you with a referral. We always advise you to contact your personal physician following an emergency department visit to inform them of the circumstance of the visit and for follow-up with them and/or the need for any referrals to a consulting specialist. The emergency department will also refer you to a specialist when appropriate. This referral assures that you have the opportunity for follow-up care with a specialist. All of these measure are taken in an effort to provide you with optimal care, which includes your follow-up. Under all circumstances we always encourage you to contact your private physician who remains a resource for coordinating your care. When calling for follow-up care, please make the office aware that this follow-up is from your recent emergency room visit. If for any reason you are refused follow-up, please contact the [facility] Emergency Department at and asked to speak to the emergency department charge nurse. [facility] [address] [place] [id number] [address] OTC cold medications as instructed Follow up with experimental mechanic [employer] Return to eD as needed as discussed - My Orders Last 24 Hours: My Active Orders 02/25/19 18:30 CULTURE STREP A CONFIRMATION [RM] Stat STREP SCRN A RAPID W CULT CONF [RM] Stat - Assessment/Plan Last 24 Hours: My Active Orders 02/25/19 18:30 CULTURE STREP A CONFIRMATION [RM] Stat STREP SCRN A RAPID W CULT CONF [] Stat
[2019-02-25 19:56] VITALS: BP 109/75; PULSE 92
== END 2019-02-25 19:50 | disposition home or self-care (01) ==
LOC: MW.ED 18:09
DX: O99.512 Diseases of the respiratory system complicating pregnancy, second trimester (principal); J06.9 Acute upper respiratory infection, unspecified; O99.332 Smoking (tobacco) complicating pregnancy, second trimester; F17.210 Nicotine dependence, cigarettes, uncomplicated; Z3A.14 14 weeks gestation of pregnancy
CPT/HCPCS: 81001; 87081; 87804; 87880-QW; 99283

== ENCOUNTER 2019-05-22 09:28 | Observation (INO) | payer MEDICAID, OTHER | END 2019-05-22 11:30 | disposition home or self-care (01) | LOC: MW.OBCHECK 09:28 → MW.OB 11:11 → MW.MS 14:20 → MW.OB 14:31 | PROVIDERS: ADMIT Obstetrics & Gynecology; ATTEND Obstetrics & Gynecology | DX: O99.89 Other specified diseases and conditions complicating pregnancy, childbirth and the puerperium (principal); R11.2 Nausea with vomiting, unspecified; M79.632 Pain in left forearm; Z3A.27 27 weeks gestation of pregnancy ==

== ENCOUNTER 2019-06-18 16:43 | Emergency (ER) | payer MEDICAID ==
--- NOTE | 2019-06-18 16:59 | EDM.PDOC ---
ED HPI GENERAL MEDICAL PROBLEM - General Chief Complaint: ENT Problem Stated Complaint: SINUSES Time Seen by Provider: 06/18/19 16:58 Source of Information: Reports: Patient - History of Present Illness INITIAL COMMENTS - FREE TEXT/NARRATIVE: HISTORY AND PHYSICAL: History of present illness: [Months with sinus pain and tenderness for several days increasing in severity right greater than left supraorbital and maxillary sinuses affected no fever chills sweats no chest pain shortness of breath headache dizziness palpitation no bowel or urine symptoms ] Patient is 37 weeks with IUP Review of systems: As per history of present illness and below otherwise all systems reviewed and negative. Past medical history: As per history of present illness and as reviewed below otherwise noncontributory. Surgical history: As per history of present illness and as reviewed below otherwise noncontributory. Social history: No reported history of drug or alcohol abuse. Family history: As per history of present illness and as reviewed below otherwise noncontributory. Physical exam: HEENT: Atraumatic, normocephalic, pupils reactive, negative for conjunctival pallor or scleral icterus, mucous membranes moist, throat clear, neck supple, nontender, trachea midline. Tenderness right greater than left as per HPI oropharynx moderate erythema postnasal drip noted no exudates Lungs: Clear to auscultation, breath sounds equal bilaterally, chest nontender. Heart: S1S2, regular, negative for clicks, rubs, or JVD. Abdomen: Soft, nondistended, nontender. Negative for masses or hepatosplenomegaly. Negative for costovertebral tenderness. Pelvis: Stable nontender. Genitourinary: Deferred. Rectal: Deferred. Extremities: Atraumatic, negative for cords or calf pain. Neurovascular unremarkable. Neuro: Awake, alert, oriented. Cranial nerves II through XII unremarkable. Cerebellum unremarkable. Motor and sensory unremarkable throughout. Exam nonfocal. Diagnostics: [clinical ] Therapeutics: [amoxil ] Impression: Sinusitis Pharyngitis [37-week IUP] Definitive disposition and diagnosis as appropriate pending reevaluation and review of above. Sinus Pressure Pain Score (Numeric/FACES): 4 - Related Data Allergies Allergy/AdvReac Type Severity Reaction Status Date / Time No Known Allergies Allergy Verified 06/18/19 17:07 Home Meds: Home Meds Ondansetron [Zofran ODT] 4 mg SL QID PRN 06/18/19 [History] No122/Iron/Folic Acid [ Multi Tablet] 1 tab PO DAILY 06/18/19 [ History] Past Medical History - Past Health History Medical/Surgical History: Denies Medical/Surgical History HEENT History: Reports: Other (See Below) Other HEENT History: has upper dentures Cardiovascular History: Reports: None Respiratory History: Reports: None Gastrointestinal History: Reports: None Genitourinary History: Reports: STD 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: , 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: Surgery of her cervix, pt is unsure of what kind Musculoskeletal History: Reports: Back Pain, Chronic, Other (See Below) Other Musculoskeletal History: I&D of leg for MRSA...states was cleared Neurological History: Reports: None Psychiatric History: Reports: Depression Endocrine/Metabolic History: Reports: None Hematologic History: Reports: None Immunologic History: Reports: None Oncologic (Cancer) History: Other Oncologic History: melanoma of skin, rt arm Dermatologic History: Reports: Melanoma - Infectious Disease History Infectious Disease History: Reports: None - Past Surgical History Head Surgeries/Procedures: Reports: None HEENT Surgical History: Reports: None Cardiovascular Surgical History: Reports: None Respiratory Surgical History: Reports: None GI Surgical History: Reports: None Female Surgical History: Reports: Section Endocrine Surgical History: Reports: None Neurological Surgical History: Reports: None Oncologic Surgical History: Reports: None Social & Family History - Family History Family Medical History: Noncontributory Respiratory: Reports: COPD - Caffeine Use Caffeine Use: Reports: Coffee ED ROS GENERAL - Review of Systems Review Of Systems: See Below ED EXAM, GENERAL - Physical Exam Exam: See Below Course - Vital Signs Last Recorded V/S: Last Vital Signs Temp 97.6 F 06/18/19 17:05 Pulse 100 06/18/19 17:05 Resp 18 06/18/19 17:05 BP 113/67 06/18/19 17:05 Pulse Ox 95 06/18/19 17:05 Departure - Departure Time of Disposition: 17:21 Disposition: Home, Self-Care 01 Condition: Good Clinical Impression: Sinusitis, Pharyngitis - Discharge Information Referrals: Sita Pacheco [employer] [Primary Care Provider] - Forms: ED Department Discharge Sepsis Event Note - Focused Exam Vital Signs: Vital Signs Temp Pulse Resp BP Pulse Ox 06/18/19 17:05 97.6 F 100 18 113/67 95 Date Exam was Performed: 06/18/19 Time Exam was Performed: 17:18
[2019-06-18 17:39] VITALS: BP 107/68; PULSE 101
== END 2019-06-18 17:39 | disposition home or self-care (01) ==
LOC: MW.ED 16:43
DX: O99.513 Diseases of the respiratory system complicating pregnancy, third trimester (principal); J32.9 Chronic sinusitis, unspecified; J02.9 Acute pharyngitis, unspecified; Z3A.37 37 weeks gestation of pregnancy
CPT/HCPCS: 99283

== ENCOUNTER 2019-08-27 09:41 | Inpatient (IN) | payer MEDICAID ==
[2019-08-27] MEDS ORDERED: Sodium Chloride 0.9% 10 ML SDV IV PRN (09:45)
[2019-08-27] MEDS ORDERED: Oxytocin/0.9 % Sodium Chloride 30 UNIT/500 ML BAG IV SCH (09:45)
[2019-08-27] MEDS ORDERED: Citric Acid/Sodium Citrate Solution 30 ML Cup PO ONE (09:45)
[2019-08-27] MEDS ORDERED: Sodium Chloride 0.9% 10 ML Syringe FLUSH PRN (09:45)
[2019-08-27] MEDS ORDERED: Sodium Chloride 0.9% 2.5 ML Syringe FLUSH PRN (09:45)
[2019-08-27] MEDS ORDERED: ceFAZolin 2 GM in Premix Bag 1 BAG IV ONE (09:45)
--- NOTE | 2019-08-27 10:20 | PCM.PREANE ---
Preanesthetic Assessment - Anesthesia/Transfusion/Family Hx Anesthesia History: Prior Anesthesia Without Reaction Family History of Anesthesia Reaction: No Transfusion History: No Prior Transfusion(s) Intubation History: Unknown - Review of Systems General: No Symptoms Pulmonary: No Symptoms Cardiovascular: No Symptoms Gastrointestinal: No Symptoms Neurological: No Symptoms Other: Reports: None - Physical Assessment Height: 5 ft 9 in Weight: 99.79 kg ASA Class: 2 Mental Status: Alert & Oriented x3 Airway Class: Mallampati = 2 Dentition: Reports: Dentures (upper) Thyro-Mental Finger Breadths: 3 Mouth Opening Finger Breadths: 3 ROM/Head Extension: Full Lungs: Clear to Auscultation, Normal Respiratory Effort Cardiovascular: Regular Rate, Regular Rhythm - Allergies Allergies/Adverse Reactions: Allergies Allergy/AdvReac Type Severity Reaction Status Date / Time No Known Allergies Allergy Verified 08/21/19 09:32 - Blood Blood Available: No - Anesthesia Plan Pre-Op Medication Ordered: None - Acknowledgements Anesthesia Type Planned: Spinal (general anesthesia back-up plan) Pt an Appropriate Candidate for the Planned Anesthesia: Yes Alternatives and Risks of Anesthesia Discussed w Pt/Guardian: Yes Pt/Guardian Understands and Agrees with Anesthesia Plan: Yes PreAnesthesia Questionnaire - Past Health History Medical/Surgical History: Denies Medical/Surgical History HEENT History: Reports: Other (See Below) Other HEENT History: has upper denture Cardiovascular History: Reports: None Respiratory History: Reports: None Gastrointestinal History: Reports: Other (See Below) Other Gastrointestinal History: heartburn during Genitourinary History: Reports: STD 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: , 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 Other OB/BYN History: Surgery on her cervix, pt is unsure of what kind Musculoskeletal History: Reports: Other (See Below) Other Musculoskeletal History: I&D of leg for MRSA 2010...states was cleared Neurological History: Reports: None Psychiatric History: Reports: Depression Endocrine/Metabolic History: Reports: None Hematologic History: Reports: None Immunologic History: Reports: None Oncologic (Cancer) History: Other Oncologic History: melanoma of skin, rt arm & rt inner thigh Dermatologic History: Reports: Melanoma - Infectious Disease History Infectious Disease History: Reports: None - Past Surgical History Head Surgeries/Procedures: Reports: None HEENT Surgical History: Reports: None Cardiovascular Surgical History: Reports: None Respiratory Surgical History: Reports: None GI Surgical History: Reports: None Female Surgical History: Reports: Section (x2) Endocrine Surgical History: Reports: None Neurological Surgical History: Reports: None Musculoskeletal Surgical History: Reports: None Oncologic Surgical History: Reports: None Dermatological Surgical History: Reports: Skin Biopsy (exc. of melanoma rt. forarm 2-3 years ago and rt. arm 1 1/2 years ago) - SUBSTANCE USE Smoking Status *Q: Current Every Day Smoker Tobacco Use Within Last Twelve Months: Cigarettes - HOME MEDS Home Medications: Home Meds No122/Iron/Folic Acid [ Multi Tablet] 1 tab PO DAILY 06/18/19 [ History] Calcium Carbonate [Tums] 1 tab.chew CHEW ASDIRECTED PRN 08/21/19 [History] Ondansetron [Zofran ODT] 1 tab PO ASDIRECTED PRN 08/21/19 [History] - CURRENT (IN HOUSE) MEDS Current Meds: Current Medications Lactated Ringer's (Ringers, Lactated) 1,000 mls @ 500 mls/hr IV BOLUS SARIAH Oxytocin/Sodium Chloride (Oxytocin 30 Unit/500 Ml-Ns) 30 unit in 500 mls @ 250 mls/hr IV TITRATE SARIAH Sodium Chloride (Saline Flush) 10 ml FLUSH ASDIRECTED PRN PRN Reason: Keep Vein Open Sodium Chloride (Saline Flush) 2.5 ml FLUSH ASDIRECTED PRN PRN Reason: Keep Vein Open Sodium Chloride (Normal Saline) 10 ml IV ASDIRECTED PRN PRN Reason: IV Use Discontinued Medications Citric Acid/Sodium Citrate (Bicitra Solution) 30 ml PO ONETIME ONE Stop: 08/27/19 09:46 Cefazolin Sodium/Dextrose 2 gm (/ Premix) 50 mls @ 100 mls/hr IV ONETIME ONE Stop: 08/27/19 10:14
[2019-08-27] MEDS: Lactated Ringers 1,000 ML IV SCH ×4 (10:36→22:03)
[2019-08-27] MEDS ORDERED: Nalbuphine 10 MG/1 ML Vial IVPUSH PRN (10:50)
[2019-08-27] MEDS ORDERED: diphenhydrAMINE 50 MG/ML SDV IVPUSH PRN ×2 (10:50→12:35)
[2019-08-27] MEDS ORDERED: fentaNYL 100 MCG/2 ML SDV IVPUSH PRN (10:50)
[2019-08-27] MEDS ORDERED: Ondansetron 4 MG/2 ML SDV IVPUSH PRN ×2 (10:50→12:35)
[2019-08-27] MEDS ORDERED: Naloxone 0.4 MG/ML Syringe IVPUSH PRN (10:50)
[2019-08-27] MEDS ORDERED: Acetaminophen/oxyCODONE 325-5 MG Tab PO PRN ×3 (10:50→12:35)
[2019-08-27] MEDS ORDERED: Phenylephrine 1% 10 MG/ML SDV ONE (10:53)
[2019-08-27] MEDS ORDERED: Sodium Chloride 0.9% 20 ML ONE (10:56)
[2019-08-27] MEDS ORDERED: Oxytocin 10 Units/1 ML SDV ONE (10:56)
[2019-08-27] MEDS ORDERED: ceFAZolin 1 GM Vial ONE (10:56)
[2019-08-27] MEDS ORDERED: Ketorolac 30 MG/ML SDV ONE (10:58)
[2019-08-27] MEDS ORDERED: Morphine PF 10 MG/10 ML SDV ONE (11:02)
--- NOTE | 2019-08-27 11:58 | PCM.LDHP ---
L&D History of Present Illness - General Date of Service: 08/27/19 Admit Problem/Dx: Patient Status Order with Admit Dx/Problem 08/27/19 09:45 Patient Status [ADT] Routine Admission Diagnosis/Problem Admission Diagnosis/Problem - planned Source of Information: Patient History Limitations: Reports: No Limitations - History of Present Illness Improves with: Reports: None Worsens with: Reports: None Associated Symptoms: Reports: N - Related Data Allergies/Adverse Reactions: Allergies Allergy/AdvReac Type Severity Reaction Status Date / Time No Known Allergies Allergy Verified 08/21/19 09:32 Home Medications: Home Meds No122/Iron/Folic Acid [ Multi Tablet] 1 tab PO DAILY 06/18/19 [ History] Calcium Carbonate [Tums] 1 tab.chew CHEW ASDIRECTED PRN 08/21/19 [History] Ondansetron [Zofran ODT] 1 tab PO ASDIRECTED PRN 08/21/19 [History] Past Medical History - Past Health History Medical/Surgical History: Denies Medical/Surgical History HEENT History: Reports: Other (See Below) Other HEENT History: has upper denture Cardiovascular History: Reports: None Respiratory History: Reports: None Gastrointestinal History: Reports: Other (See Below) Other Gastrointestinal History: heartburn during Genitourinary History: Reports: STD 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 Previous CS Musculoskeletal History: Reports: Other (See Below) Other Musculoskeletal History: I&D of leg for MRSA 2009...states was cleared Neurological History: Reports: None Psychiatric History: Reports: Depression Endocrine/Metabolic History: Reports: None Hematologic History: Reports: None Immunologic History: Reports: None Oncologic (Cancer) History: Other Oncologic History: melanoma of skin, rt arm & rt inner thigh Dermatologic History: Reports: Melanoma - Infectious Disease History Infectious Disease History: Reports: None Other Infectious Disease History: Hx of MRSA, cleared - Past Surgical History Head Surgeries/Procedures: Reports: None HEENT Surgical History: Reports: None Cardiovascular Surgical History: Reports: None Respiratory Surgical History: Reports: None GI Surgical History: Reports: None Female Surgical History: Reports: Section Endocrine Surgical History: Reports: None Neurological Surgical History: Reports: None Musculoskeletal Surgical History: Reports: None Oncologic Surgical History: Reports: None Dermatological Surgical History: Reports: Skin Biopsy Social & Family History - Family History Family Medical History: Noncontributory Respiratory: Reports: COPD - Tobacco Use Smoking Status *Q: Current Every Day Smoker Years of Tobacco use: 18 Packs/Tins Daily: 0.5 Tobacco Use Comment: Not ready to quit. Second Hand Smoke Exposure: Yes - Caffeine Use Caffeine Use: Reports: Soda - Recreational Drug Use Recreational Drug Use: No Drug Use in Last 12 Months: No H&P Review of Systems - Review of Systems: Review Of Systems: See Below General: Reports: No Symptoms HEENT: Reports: No Symptoms Pulmonary: Reports: No Symptoms Cardiovascular: Reports: No Symptoms Gastrointestinal: Reports: No Symptoms Genitourinary: Reports: No Symptoms Musculoskeletal: Reports: No Symptoms Skin: Reports: No Symptoms Psychiatric: Reports: No Symptoms Neurological: Reports: No Symptoms Hematologic/Lymphatic: Reports: No Symptoms Immunologic: Reports: No Symptoms L&D Exam - Exam Exam: See Below - Vital Signs Weight: 99.79 kg - OB Specific Contraction Intensity: Mild Movement: Active Heart Tones: Present Presentation: Vertex - Tapai Score Tapia Score Cervix Position: Anterior Tapia Score Consistency: Firm Tapia Score Effacement: 0-30% Tapia Score Dilation: Closed Tapia Score 's Station: -3 Tapia Score Total: 2 - Exam General: Alert, Oriented HEENT: PERRLA, Conjunctiva Clear, EACs Clear, EOMI, Hearing Intact, Mucosa Moist & [place], Nares Patent, Normal Nasal Septum, Posterior Pharynx Clear, TMs Clear Neck: Supple, Trachea Midline Lungs: Clear to Auscultation, Normal Respiratory Effort Cardiovascular: Regular Rate, Regular Rhythm GI/Abdominal Exam: Normal Bowel Sounds, Soft, Non-Tender, No Organomegaly, No Distention, No Abnormal Bruit, No Mass, Pelvis Stable Rectal Exam: Normal Exam, Normal Rectal Tone Genitourinary: Normal external exam, Normal bimanual exam, Normal speculum exam Back Exam: Normal Inspection, Full Range of Motion Extremities: Normal Inspection, Normal Range of Motion, Non-Tender, No Pedal Edema, Normal Capillary Refill Skin: Warm, Dry, Intact Neurological: Cranial Nerves Intact, Reflexes Equal Bilateral Psychiatric: Alert, Normal Affect, Normal Mood - Patient Data Lab Results Last 24 hrs: Laboratory Results - last 24 hr 08/27/19 Range/Units 11:27 WBC 8.01 (4.0-11.0) K/uL RBC 3.31 L (4.30-5.90) M/uL Hgb 10.4 L (12.0-16.0) g/dL Hct 31.2 L (36.0-46.0) % MCV 94.3 (80.0-98.0) fL MCH 31.4 (27.0-32.0) pg MCHC 33.3 (31.0-37.0) g/dL RDW Std Deviation 49.6 (28.0-62.0) fl RDW Coeff of Gamal 14 (11.0-15.0) % Plt Count 198 (150-400) K/uL MPV 10.40 (7.40-12.00) fL Nucleated RBC % 0.0 /100WBC Nucleated RBCs # 0 K/uL Result Diagrams: 08/27/19 11:27 Problem List Initiated/Reviewed/Updated: Yes Orders Last 24hrs: Active Orders 24 hr Category Date Time Status Patient Status [ADT] Routine ADT 08/27/19 09:45 Active Bradycardia-Neuroaxis [employer] [RC] ROUTINE Care 08/27/19 10:50 Active Hypertension-Neuroaxis [employer] [RC] ROUTINE Care 08/27/19 10:50 Active Hypotension-Neuroaxis [employer] [RC] ROUTINE Care 08/27/19 10:50 Active Notify Provider Vital Signs [RC] PRN Care 08/27/19 09:47 Active Oxygen Therapy [RC] PER UNIT ROUTINE Care 08/27/19 10:50 Active Procedure Site Prep Instruct [RC] ASDIRECTED Care 08/27/19 09:45 Active Up ad Keyla [RC] ASDIRECTED Care 08/27/19 09:45 Active Verify Patient Consent Obtain [RC] ASDIRECTED Care 08/27/19 09:45 Active Vital Signs [RC] Q1H Care 08/27/19 10:50 Active RPR (SYPHILIS SERO) W/ RFLX [REF] Routine Lab 08/27/19 11:27 Received TYPE AND SCREEN [BBK] Routine Lab 08/27/19 11:27 Received Acetaminophen/oxyCODONE [Percocet 325-5 MG] Med 08/27/19 10:50 Active 2 tab PO Q6H PRN Lactated Ringers [Ringers, Lactated] 1,000 ml Med 08/27/19 09:45 Active IV BOLUS Nalbuphine [Nubain] Med 08/27/19 10:50 Active 5 mg IVPUSH ASDIRECTED PRN Naloxone [Narcan] Med 08/27/19 10:50 Active 0.1 mg IVPUSH ONETIME PRN Ondansetron [Zofran] Med 08/27/19 10:50 Active 4 mg IVPUSH Q6H PRN Oxytocin/0.9 % Sodium Chloride [Oxytocin 30 Unit/500 ML Med 08/27/19 09:45 Active -NS] 30 unit in 500 ml IV TITRATE Sodium Chloride 0.9% [Normal Saline] Med 08/27/19 09:45 Active 10 ml IV ASDIRECTED PRN Sodium Chloride 0.9% [Saline Flush] Med 08/27/19 09:45 Active 10 ml FLUSH ASDIRECTED PRN Sodium Chloride 0.9% [Saline Flush] Med 08/27/19 09:45 Active 2.5 ml FLUSH ASDIRECTED PRN diphenhydrAMINE [Benadryl] Med 08/27/19 10:50 Active 25 mg IVPUSH Q4H PRN fentaNYL [Sublimaze] Med 08/27/19 10:50 Active 50 mcg IVPUSH Q1H PRN Peripheral IV Insertion Adult [OM.PC] Routine Oth 08/27/19 09:45 Ordered Schedule Procedure [COMM] Per Unit Routine Oth 08/27/19 09:45 Ordered Resuscitation Status Routine Resus Stat 08/27/19 09:45 Ordered Medication Orders Diphenhydramine HCl (Benadryl) 25 mg IVPUSH Q4H PRN PRN Reason: Itching Stop: 08/28/19 10:50 Fentanyl (Sublimaze) 50 mcg IVPUSH Q1H PRN PRN Reason: Pain (severe 7-10) Lactated Ringer's (Ringers, Lactated) 1,000 mls @ 500 mls/hr IV BOLUS SARIAH Last Admin: 08/27/19 11:51 Dose: 500 mls/hr Infusion: 08/27/19 11:51 Dose: 500 mls/hr Admin: 08/27/19 10:36 Dose: 500 mls/hr Oxytocin/Sodium Chloride (Oxytocin 30 Unit/500 Ml-Ns) 30 unit in 500 mls @ 250 mls/hr IV TITRATE SARIAH Nalbuphine HCl (Nubain) 5 mg IVPUSH ASDIRECTED PRN PRN Reason: Itching Naloxone HCl (Narcan) 0.1 mg IVPUSH ONETIME PRN PRN Reason: Respiratory Depression Stop: 08/28/19 10:50 Ondansetron HCl (Zofran) 4 mg IVPUSH Q6H PRN PRN Reason: Nausea Oxycodone/Acetaminophen (Percocet 325-5 Mg) 2 tab PO Q6H PRN PRN Reason: Pain (moderate 4-6) Sodium Chloride (Saline Flush) 10 ml FLUSH ASDIRECTED PRN PRN Reason: Keep Vein Open Sodium Chloride (Saline Flush) 2.5 ml FLUSH ASDIRECTED PRN PRN Reason: Keep Vein Open Sodium Chloride (Normal Saline) 10 ml IV ASDIRECTED PRN PRN Reason: IV Use Assessment/Plan Comment:: IUP 39+ wks admitted for elective repeat C/section.
[2019-08-27] MEDS ORDERED: Tranexamic Acid 1,000 MG in Sodium Chloride 0.9% 100 ML IV PRN (12:35)
[2019-08-27] MEDS ORDERED: Misoprostol 200 MCG Tab RECTAL PRN (12:35)
[2019-08-27] MEDS ORDERED: Lanolin 100% Cream 7 GM Tube TOP PRN (12:35)
[2019-08-27] MEDS ORDERED: Methylergonovine 0.2 MG/1 ML Amp IM PRN (12:35)
[2019-08-27] MEDS ORDERED: Bisacodyl 10 MG Supp RECTAL PRN (12:35)
[2019-08-27] MEDS ORDERED: Oxytocin 10 Units/1 ML SDV IM PRN (12:35)
--- NOTE | 2019-08-27 12:42 | PCM.OPNOTE ---
- General Post-Op/Procedure Note Date of Surgery/Procedure: 08/27/19 Operative Procedure(s): Repeat C/section. Pre Op Diagnosis: [id number] +wks, previous C/section. Post-Op Diagnosis: Same Anesthesia Technique: Spinal Primary Surgeon: Sabino Franco Spiritual Counselor: Valeria Anguiano EBL in mLs: 650 Complications: None Condition: Good
[2019-08-27] MEDS ORDERED: Rocuronium 100 MG/10 ML Syringe ONE (13:58)
--- NOTE | 2019-08-27 14:09 | OR ---
SURGEON: Sabino Franco MD DATE OF PROCEDURE: 08/27/2019 PREOPERATIVE DIAGNOSIS: Intrauterine 39-plus weeks, previous section, multiple. POSTOPERATIVE DIAGNOSIS: Intrauterine 39-plus weeks, previous section, multiple. OPERATION PERFORMED: Repeat low-transverse section. PRIMARY SURGEON: Sabino Franco MD DECK MATE: Valeria Anguiano CNM ANESTHESIA: Spinal, Mr. Mars [place] and Dr. Love. ESTIMATED BLOOD LOSS: 650 mL. COMPLICATIONS: None. FINDINGS: Male fetus. scores reported to be 8 and 9. Normal uterus, tubes, and ovaries. INDICATION FOR SURGERY: This patient is 38. She has had multiple previous sections. She is admitted for elective repeat section. PROCEDURE IN DETAIL: The patient was brought to the OR and properly identified. After adequate level of spinal anesthesia with a Bhatia catheter in the bladder, the patient was prepped and draped in sterile fashion as usual. Low-transverse Pfannenstiel skin incision was done. Nathaniel's fascia, rectus fascia were opened in direction of the incision. The 2 recti muscles were and peritoneal cavity was entered. Bladder flap was raised in the usual manner, pushing the bladder away from the lower uterine segment. Low-transverse uterine incision was done and extended manually with hand. Fetus was in a vertex position and delivered without any problem, cried immediately. score reported to be 8 and 9. The weight is not available at the time of the dictation. The placenta delivered spontaneous, complete, and intact. Repair of the lower uterine segment done with 2-0 Vicryl continuous interlocking in 2 layers. Reperitonealization done with 3-0 Vicryl continuous and then the peritoneal cavity evacuated completely from all blood and blood clot, and closed with 3-0 Vicryl continuous. The rectus fascia was closed with #1 PDS continuous, single strand 3-0 Vicryl used to close the Nathaniel's fascia continuous, and the skin closed with a Stratafix in subcuticular fashion and Dermabond. Instrument and sponge counts were correct. The patient tolerated the procedure well and went to recovery room in stable general condition. JAHAIRA / JOVITA /[id number]
[2019-08-27] MEDS ORDERED: Nicotine 21 MG/24 Hr Patch TRDERM SCH (17:00)
[2019-08-27] MEDS: Ketorolac 30 MG/ML SDV IVPUSH SCH (18:48)
[2019-08-27] MEDS ORDERED: Docusate Sodium 100 MG Cap PO SCH (21:00)
[2019-08-28] MEDS: Ketorolac 30 MG/ML SDV IVPUSH SCH ×3 (00:14→12:34)
--- NOTE | 2019-08-28 07:17 | PCM48HPAN ---
Post Anesthesia Note - EVALUATION WITHIN 48HRS OF ANESTHETIC Vital Signs in Normal Range: Yes Patient Participated in Evaluation: Yes Respiratory Function Stable: Yes Airway Patent: Yes Cardiovascular Function Stable: Yes Hydration Status Stable: Yes Pain Control Satisfactory: Yes Nausea and Vomiting Control Satisfactory: Yes Mental Status Recovered: Yes Vital Signs: Last Vital Signs Temp 36.6 C 08/28/19 01:00 Pulse 82 08/28/19 05:54 Resp 18 08/28/19 05:54 BP 111/61 08/28/19 05:00 Pulse Ox 98 08/28/19 05:54
--- NOTE | 2019-08-28 08:20 | PCM.PNPP ---
- General Info Date of Service: 08/28/19 Admission Dx/Problem (Free Text): Patient Status Order with Admit Dx/Problem 08/27/19 09:45 Patient Status [ADT] Routine Admission Diagnosis/Problem Admission Diagnosis/Problem - planned Functional Status: Reports: Pain Controlled, Tolerating Diet, Ambulating, Urinating - Review of Systems General: Reports: No Symptoms HEENT: Reports: No Symptoms Pulmonary: Reports: No Symptoms Cardiovascular: Reports: No Symptoms Gastrointestinal: Reports: No Symptoms Genitourinary: Reports: No Symptoms Musculoskeletal: Reports: No Symptoms Skin: Reports: No Symptoms Neurological: Reports: No Symptoms Psychiatric: Reports: No Symptoms - General Info Date of Service: 08/28/19 - Patient Data Vital Signs - Most Recent: Last Vital Signs Temp 97.9 F 08/28/19 01:00 Pulse 82 08/28/19 05:54 Resp 18 08/28/19 05:54 BP 111/61 08/28/19 05:00 Pulse Ox 98 08/28/19 05:54 Weight - Most Recent: 220 lb I&O - Last 24 Hours: Intake & Output 08/27/19 08/28/19 08/28/19 22:59 06:59 14:59 Output Total 1275 Balance -1275 Lab Results - Last 24 Hours: Laboratory Results - last 24 hr 08/27/19 08/27/19 08/28/19 Range/Units 11:27 11:27 05:23 WBC 8.01 (4.0-11.0) K/uL RBC 3.31 L (4.30-5.90) M/uL Hgb 10.4 L 9.8 L (12.0-16.0) g/dL Hct 31.2 L 29.7 L (36.0-46.0) % MCV 94.3 (80.0-98.0) fL MCH 31.4 (27.0-32.0) pg MCHC 33.3 (31.0-37.0) g/dL RDW Std Deviation 49.6 (28.0-62.0) fl RDW Coeff of Gamal 14 (11.0-15.0) % Plt Count 198 (150-400) K/uL MPV 10.40 (7.40-12.00) fL Nucleated RBC % 0.0 /100WBC Nucleated RBCs # 0 K/uL Blood Type O POSITIVE Antibody Screen NEGATIVE Med Orders - Current: Current Medications Bisacodyl (Dulcolax) 10 mg RECTAL ONETIME PRN PRN Reason: Constipation Diphenhydramine HCl (Benadryl) 25 mg IVPUSH Q4H PRN PRN Reason: Itching Stop: 08/28/19 10:50 Diphenhydramine HCl (Benadryl) 25 mg IVPUSH Q6H PRN PRN Reason: Itching or Nausea Docusate Sodium (Colace) 100 mg PO BID [facility] Last Admin: 08/27/19 21:53 Dose: 100 mg Emollient Ointment (Lansinoh Hpa) 0 gm TOP ASDIRECTED PRN PRN Reason: Sore Nipples Fentanyl (Sublimaze) 50 mcg IVPUSH Q1H PRN PRN Reason: Pain (severe 7-10) Lactated Ringer's (Ringers, Lactated) 1,000 mls @ 500 mls/hr IV BOLUS [facility] Last Admin: 08/27/19 11:51 Dose: 500 mls/hr Oxytocin/Sodium Chloride (Oxytocin 30 Unit/500 Ml-Ns) 30 unit in 500 mls @ 250 mls/hr IV TITRATE [facility] Tranexamic Acid 1,000 mg/ (Sodium Chloride) 110 mls @ 660 mls/hr IV ONETIME PRN PRN Reason: Bleeding Lactated Ringer's (Ringers, Lactated) 1,000 mls @ 125 mls/hr IV ASDIRECTED [facility] Last Admin: 08/27/19 22:03 Dose: 125 mls/hr Ibuprofen (Motrin) 800 mg PO Q8H PRN PRN Reason: mild pain or fever Ketorolac Tromethamine (Toradol) 30 mg IVPUSH Q6H [facility] Stop: 08/28/19 12:46 Last Admin: 08/28/19 05:53 Dose: 30 mg Methylergonovine Maleate (Methergine) 0.2 mg IM ONETIME PRN PRN Reason: Excessive Vaginal Bleeding Misoprostol (Cytotec) 1,000 mcg RECTAL ONETIME PRN PRN Reason: excessive bleeding Nalbuphine HCl (Nubain) 5 mg IVPUSH ASDIRECTED PRN PRN Reason: Itching Naloxone HCl (Narcan) 0.1 mg IVPUSH ONETIME PRN PRN Reason: Respiratory Depression Stop: 08/28/19 10:50 Nicotine (Habitrol) 21 mg TRDERM DAILY [facility] Last Admin: 08/27/19 18:48 Dose: 21 mg Ondansetron HCl (Zofran) 4 mg IVPUSH Q6H PRN PRN Reason: Nausea Ondansetron HCl (Zofran) 4 mg IVPUSH Q4H PRN PRN Reason: Nausea/Vomiting Oxycodone/Acetaminophen (Percocet 325-5 Mg) 2 tab PO Q6H PRN PRN Reason: Pain (moderate 4-6) Oxycodone/Acetaminophen (Percocet 325-5 Mg) 1 tab PO Q4H PRN PRN Reason: Pain (moderate 4-6) Oxycodone/Acetaminophen (Percocet 325-5 Mg) 2 tab PO Q4H PRN PRN Reason: Pain (moderate 4-6) Oxytocin (Pitocin) 10 unit IM ASDIRECTED PRN PRN Reason: Excessive Vaginal Bleeding Sodium Chloride (Saline Flush) 10 ml FLUSH ASDIRECTED PRN PRN Reason: Keep Vein Open Sodium Chloride (Saline Flush) 2.5 ml FLUSH ASDIRECTED PRN PRN Reason: Keep Vein Open Sodium Chloride (Normal Saline) 10 ml IV ASDIRECTED PRN PRN Reason: IV Use Discontinued Medications Cefazolin Sodium (Ancef) Confirm Administered Dose 2 gm .ROUTE .STK-MED ONE Stop: 08/27/19 10:57 Citric Acid/Sodium Citrate (Bicitra Solution) 30 ml PO ONETIME ONE Stop: 08/27/19 09:46 Last Admin: 08/27/19 11:51 Dose: 30 ml Cefazolin Sodium/Dextrose 2 gm (/ Premix) 50 mls @ 100 mls/hr IV ONETIME ONE Stop: 08/27/19 10:14 Sodium Chloride (Normal Saline) Confirm Administered Dose 20 mls @ as directed .ROUTE .STK-MED ONE Stop: 08/27/19 10:57 Ketorolac Tromethamine (Toradol) Confirm Administered Dose 30 mg .ROUTE .STK- MED ONE Stop: 08/27/19 10:59 Morphine Sulfate (Duramorph Pf) Confirm Administered Dose 10 mg .ROUTE .STK-MED ONE Stop: 08/27/19 11:03 Oxytocin (Pitocin) Confirm Administered Dose 20 unit .ROUTE .STK-MED ONE Stop: 08/27/19 10:57 Phenylephrine HCl (Eusebio-Synephrine) Confirm Administered Dose 10 mg .ROUTE .STK- MED ONE Stop: 08/27/19 10:54 Rocuronium [place] (Zemuron) Confirm Administered Dose 400 mg .ROUTE .STK-MED ONE Stop: 08/27/19 13:59 - Interaction Disposition, : in Room with Family Interaction: Holding Infant Infant Feeding: Bottle Fed Infant Support Person: Significant Other - Recovery Exam Fundal Tone: Firm Fundal Level: 2 Fingerbreadths Below Umbilicus Fundal Placement: Midline Lochia Amount: Scant Lochia Color: Rubra/Red Perineum Description: Intact, Minimal Bruising/Swelling Episiotomy/Laceration: None Bladder Status: Indwelling Catheter in Place Urinary Elimination: Indwelling Catheter - Exam General: Alert, Oriented, Cooperative, No Acute Distress Lungs: Normal Respiratory Effort GI/Abdominal Exam: Soft, Non-Tender Extremities: Normal Inspection, Normal Range of Motion, Non-Tender, Normal Capillary Refill Skin: Warm, Dry, Intact Wound/Incisions: Healing Well Neurological: No New Focal Deficit, Normal Gait, Normal Speech, Normal Tone Psy/Mental Status: Alert, Normal Affect, Normal Mood - Problem List & Annotations (1) delivery delivered SNOMED Code(s): 744336490 Code(s): O82 - ENCOUNTER FOR DELIVERY WITHOUT INDICATION Status: Acute Priority: High Current Visit: Yes - Problem List Review Problem List Initiated/Reviewed/Updated: Yes - Plan Plan:: IUP 39+ wks admitted for elective repeat C/section. PP Day 1: A: Ambulating, urinating, bottle feeding infant, bonding well with baby. P: Routine plan of care; Dr. Franco updated.
--- NOTE | 2019-08-28 09:48 | PCM.SURGPN ---
- General Info Date of Service: 08/28/19 POD#: 1 Functional Status: Reports: Pain Controlled - Review of Systems General: Reports: No Symptoms HEENT: Reports: No Symptoms Pulmonary: Reports: No Symptoms Cardiovascular: Reports: No Symptoms Gastrointestinal: Reports: No Symptoms Genitourinary: Reports: No Symptoms Musculoskeletal: Reports: No Symptoms Skin: Reports: No Symptoms Neurological: Reports: No Symptoms Psychiatric: Reports: No Symptoms - Patient Data Vitals - Most Recent: Last Vital Signs Temp 36.1 C 08/28/19 07:40 Pulse 85 08/28/19 09:00 Resp 16 08/28/19 09:00 BP 102/59 L 08/28/19 07:40 Pulse Ox 100 08/28/19 09:00 Weight - Most Recent: 99.79 kg I&O - Last 24 Hours: Intake & Output 08/27/19 08/28/19 08/28/19 22:59 06:59 14:59 Output Total 1275 Balance -1275 Lab Results Last 24 Hrs: Laboratory Results - last 24 hr 08/27/19 08/27/19 08/28/19 Range/Units 11:27 11:27 05:23 WBC 8.01 (4.0-11.0) K/uL RBC 3.31 L (4.30-5.90) M/uL Hgb 10.4 L 9.8 L (12.0-16.0) g/dL Hct 31.2 L 29.7 L (36.0-46.0) % MCV 94.3 (80.0-98.0) fL MCH 31.4 (27.0-32.0) pg MCHC 33.3 (31.0-37.0) g/dL RDW Std Deviation 49.6 (28.0-62.0) fl RDW Coeff of Gamal 14 (11.0-15.0) % Plt Count 198 (150-400) K/uL MPV 10.40 (7.40-12.00) fL Nucleated RBC % 0.0 /100WBC Nucleated RBCs # 0 K/uL Blood Type O POSITIVE Antibody Screen NEGATIVE Med Orders - Current: Current Medications Bisacodyl (Dulcolax) 10 mg RECTAL ONETIME PRN PRN Reason: Constipation Diphenhydramine HCl (Benadryl) 25 mg IVPUSH Q4H PRN PRN Reason: Itching Stop: 08/28/19 10:50 Diphenhydramine HCl (Benadryl) 25 mg IVPUSH Q6H PRN PRN Reason: Itching or Nausea Docusate Sodium (Colace) 100 mg PO BID [facility] Last Admin: 08/27/19 21:53 Dose: 100 mg Emollient Ointment (Lansinoh Hpa) 0 gm TOP ASDIRECTED PRN PRN Reason: Sore Nipples Fentanyl (Sublimaze) 50 mcg IVPUSH Q1H PRN PRN Reason: Pain (severe 7-10) Lactated Ringer's (Ringers, Lactated) 1,000 mls @ 500 mls/hr IV BOLUS [facility] Last Admin: 08/27/19 11:51 Dose: 500 mls/hr Oxytocin/Sodium Chloride (Oxytocin 30 Unit/500 Ml-Ns) 30 unit in 500 mls @ 250 mls/hr IV TITRATE [facility] Tranexamic Acid 1,000 mg/ (Sodium Chloride) 110 mls @ 660 mls/hr IV ONETIME PRN PRN Reason: Bleeding Lactated Ringer's (Ringers, Lactated) 1,000 mls @ 125 mls/hr IV ASDIRECTED [facility] Last Admin: 08/27/19 22:03 Dose: 125 mls/hr Ibuprofen (Motrin) 800 mg PO Q8H PRN PRN Reason: mild pain or fever Ketorolac Tromethamine (Toradol) 30 mg IVPUSH Q6H [facility] Stop: 08/28/19 12:46 Last Admin: 08/28/19 05:53 Dose: 30 mg Methylergonovine Maleate (Methergine) 0.2 mg IM ONETIME PRN PRN Reason: Excessive Vaginal Bleeding Misoprostol (Cytotec) 1,000 mcg RECTAL ONETIME PRN PRN Reason: excessive bleeding Nalbuphine HCl (Nubain) 5 mg IVPUSH ASDIRECTED PRN PRN Reason: Itching Naloxone HCl (Narcan) 0.1 mg IVPUSH ONETIME PRN PRN Reason: Respiratory Depression Stop: 08/28/19 10:50 Nicotine (Habitrol) 21 mg TRDERM DAILY [facility] Last Admin: 08/27/19 18:48 Dose: 21 mg Ondansetron HCl (Zofran) 4 mg IVPUSH Q6H PRN PRN Reason: Nausea Ondansetron HCl (Zofran) 4 mg IVPUSH Q4H PRN PRN Reason: Nausea/Vomiting Oxycodone/Acetaminophen (Percocet 325-5 Mg) 2 tab PO Q6H PRN PRN Reason: Pain (moderate 4-6) Oxycodone/Acetaminophen (Percocet 325-5 Mg) 1 tab PO Q4H PRN PRN Reason: Pain (moderate 4-6) Oxycodone/Acetaminophen (Percocet 325-5 Mg) 2 tab PO Q4H PRN PRN Reason: Pain (moderate 4-6) Oxytocin (Pitocin) 10 unit IM ASDIRECTED PRN PRN Reason: Excessive Vaginal Bleeding Sodium Chloride (Saline Flush) 10 ml FLUSH ASDIRECTED PRN PRN Reason: Keep Vein Open Sodium Chloride (Saline Flush) 2.5 ml FLUSH ASDIRECTED PRN PRN Reason: Keep Vein Open Sodium Chloride (Normal Saline) 10 ml IV ASDIRECTED PRN PRN Reason: IV Use Discontinued Medications Cefazolin Sodium (Ancef) Confirm Administered Dose 2 gm .ROUTE .STK-MED ONE Stop: 08/27/19 10:57 Citric Acid/Sodium Citrate (Bicitra Solution) 30 ml PO ONETIME ONE Stop: 08/27/19 09:46 Last Admin: 08/27/19 11:51 Dose: 30 ml Cefazolin Sodium/Dextrose 2 gm (/ Premix) 50 mls @ 100 mls/hr IV ONETIME ONE Stop: 08/27/19 10:14 Sodium Chloride (Normal Saline) Confirm Administered Dose 20 mls @ as directed .ROUTE .STK-MED ONE Stop: 08/27/19 10:57 Ketorolac Tromethamine (Toradol) Confirm Administered Dose 30 mg .ROUTE .STK- MED ONE Stop: 08/27/19 10:59 Morphine Sulfate (Duramorph Pf) Confirm Administered Dose 10 mg .ROUTE .STK-MED ONE Stop: 08/27/19 11:03 Oxytocin (Pitocin) Confirm Administered Dose 20 unit .ROUTE .STK-MED ONE Stop: 08/27/19 10:57 Phenylephrine HCl (Eusebio-Synephrine) Confirm Administered Dose 10 mg .ROUTE .STK- MED ONE Stop: 08/27/19 10:54 Rocuronium [place] (Zemuron) Confirm Administered Dose 400 mg .ROUTE .STK-MED ONE Stop: 08/27/19 13:59 - Exam Wound/Incisions: Healing Well General: Alert, Oriented HEENT: Pupils Equal Neck: Supple Lungs: Clear to Auscultation, Normal Respiratory Effort Cardiovascular: Regular Rate, Regular Rhythm GI/Abdominal Exam: Normal Bowel Sounds, Soft, Non-Tender, No Organomegaly, No Distention, No Abnormal Bruit, No Mass, Pelvis Stable Extremities: Normal Inspection, Normal Range of Motion, Non-Tender, No Pedal Edema, Normal Capillary Refill Skin: Warm, Dry, Intact Neurological: No New Focal Deficit Psy/Mental Status: Alert, Normal Affect, Normal Mood Sepsis Event Note - Evaluation Sepsis Screening Result: No Definite Risk - Focused Exam Vital Signs: Vital Signs Temp Pulse Resp BP Pulse Ox 08/28/19 09:00 85 16 100 08/28/19 07:40 36.1 C 72 17 102/59 L 98 08/28/19 05:54 82 18 98 08/28/19 05:00 79 14 111/61 96 08/28/19 04:00 76 14 96 08/28/19 03:00 88 15 100 08/28/19 02:00 82 14 98 08/28/19 01:00 36.6 C 85 14 97/50 L 98 08/28/19 00:00 84 16 98 08/27/19 23:00 98 17 98 08/27/19 22:00 89 17 98 Date Exam was Performed: 08/28/19 Time Exam was Performed: 09:47 - Problem List Review Problem List Initiated/Reviewed/Updated: Yes - My Orders Last 24 Hours: Active Orders 24 hr Category Date Time Status Patient Status [ADT] Routine ADT 08/27/19 12:35 Active Ambulate [RC] PER UNIT ROUTINE Care 08/27/19 12:35 Active Antiembolic Devices [RC] PER UNIT ROUTINE Care 08/27/19 12:36 Active Bradycardia-Neuroaxis [employer] [RC] ROUTINE Care 08/27/19 10:50 Active Communication Order [RC] Per Unit Routine Care 08/27/19 12:35 Active Hypertension-Neuroaxis [employer] [RC] ROUTINE Care 08/27/19 10:50 Active Hypotension-Neuroaxis [employer] [RC] ROUTINE Care 08/27/19 10:50 Active May Shower [RC] ASDIRECTED Care 08/27/19 12:35 Active Notify Provider Vital Signs [RC] PRN Care 08/27/19 09:47 Active Oxygen Therapy [RC] PER UNIT ROUTINE Care 08/27/19 10:50 Active RT Incentive Spirometry [RC] Q2HWA Care 08/27/19 12:35 Active Up ad Keyla [RC] ASDIRECTED Care 08/27/19 09:45 Active Vital Signs [RC] Q1H Care 08/27/19 10:50 Active Regular Diet [DIET] Diet 08/27/19 Dinner Active RPR (SYPHILIS SERO) W/ RFLX [REF] Routine Lab 08/27/19 11:27 Received Acetaminophen/oxyCODONE [Percocet 325-5 MG] Med 08/27/19 12:35 Active 1 tab PO Q4H PRN Acetaminophen/oxyCODONE [Percocet 325-5 MG] Med 08/27/19 12:35 Active 2 tab PO Q4H PRN Acetaminophen/oxyCODONE [Percocet 325-5 MG] Med 08/27/19 10:50 Active 2 tab PO Q6H PRN Docusate Sodium [Colace] Med 08/27/19 21:00 Active 100 mg PO BID Ibuprofen [Motrin] Med 08/28/19 18:45 Active 800 mg PO Q8H PRN Ketorolac [Toradol] Med 08/27/19 12:45 Active 30 mg IVPUSH Q6H Lactated Ringers [Ringers, Lactated] 1,000 ml Med 08/27/19 12:45 Active IV ASDIRECTED Lactated Ringers [Ringers, Lactated] 1,000 ml Med 08/27/19 09:45 Active IV BOLUS Lanolin [Lansinoh HPA] Med 08/27/19 12:35 Active See Dose Instructions TOP ASDIRECTED PRN Methylergonovine [Methergine] Med 08/27/19 12:35 Active 0.2 mg IM ONETIME PRN Nalbuphine [Nubain] Med 08/27/19 10:50 Active 5 mg IVPUSH ASDIRECTED PRN Naloxone [Narcan] Med 08/27/19 10:50 Active 0.1 mg IVPUSH ONETIME PRN Nicotine [Habitrol] Med 08/27/19 17:00 Active 21 mg TRDERM DAILY Ondansetron [Zofran] Med 08/27/19 12:35 Active 4 mg IVPUSH Q4H PRN Ondansetron [Zofran] Med 08/27/19 10:50 Active 4 mg IVPUSH Q6H PRN Oxytocin [Pitocin] Med 08/27/19 12:35 Active 10 unit IM ASDIRECTED PRN Oxytocin/0.9 % Sodium Chloride [Oxytocin 30 Unit/500 ML Med 08/27/19 09:45 Active -NS] 30 unit in 500 ml IV TITRATE Sodium Chloride 0.9% [Normal Saline] Med 08/27/19 09:45 Active 10 ml IV ASDIRECTED PRN Sodium Chloride 0.9% [Saline Flush] Med 08/27/19 09:45 Active 10 ml FLUSH ASDIRECTED PRN Sodium Chloride 0.9% [Saline Flush] Med 08/27/19 09:45 Active 2.5 ml FLUSH ASDIRECTED PRN Tranexamic Acid [Cyklokapron] 1,000 mg Med 08/27/19 12:35 Active Sodium Chloride 0.9% [Normal Saline] 100 ml IV ONETIME bisacodyL [Dulcolax] Med 08/27/19 12:35 Active 10 mg RECTAL ONETIME PRN diphenhydrAMINE [Benadryl] Med 08/27/19 10:50 Active 25 mg IVPUSH Q4H PRN diphenhydrAMINE [Benadryl] Med 08/27/19 12:35 Active 25 mg IVPUSH Q6H PRN fentaNYL [Sublimaze] Med 08/27/19 10:50 Active 50 mcg IVPUSH Q1H PRN miSOPROStoL [Cytotec] Med 08/27/19 12:35 Active 1,000 mcg RECTAL ONETIME PRN Assess Lochia [WOMSER] Per Unit Routine Ot 08/27/19 12:35 Ordered Assess Uterine Involution [WOMSER] Per Unit Routine Oth 08/27/19 12:35 Ordered Breast Pump [WOMSER] Per Unit Routine Ot 08/27/19 12:35 Ordered Peripheral IV Discontinue [OM.PC] Routine Oth 08/27/19 12:35 Ordered Peripheral IV Insertion Adult [OM.PC] Routine Oth 08/27/19 09:45 Ordered Schedule Procedure [COMM] Per Unit Routine Oth 08/27/19 09:45 Ordered Sequential Compression Device [OM.PC] Per Unit Routine Oth 08/27/19 12:35 Ordered Resuscitation Status Routine Resus Stat 08/27/19 09:45 Ordered Medication Orders Bisacodyl (Dulcolax) 10 mg RECTAL ONETIME PRN PRN Reason: Constipation Diphenhydramine HCl (Benadryl) 25 mg IVPUSH Q4H PRN PRN Reason: Itching Stop: 08/28/19 10:50 Diphenhydramine HCl (Benadryl) 25 mg IVPUSH Q6H PRN PRN Reason: Itching or Nausea Docusate Sodium (Colace) 100 mg PO BID [facility] Last Admin: 08/27/19 21:53 Dose: 100 mg Emollient Ointment (Lansinoh Hpa) 0 gm TOP ASDIRECTED PRN PRN Reason: Sore Nipples Fentanyl (Sublimaze) 50 mcg IVPUSH Q1H PRN PRN Reason: Pain (severe 7-10) Lactated Ringer's (Ringers, Lactated) 1,000 mls @ 500 mls/hr IV BOLUS [facility] Last Admin: 08/27/19 11:51 Dose: 500 mls/hr Infusion: 08/27/19 11:51 Dose: 500 mls/hr Admin: 08/27/19 10:36 Dose: 500 mls/hr Oxytocin/Sodium Chloride (Oxytocin 30 Unit/500 Ml-Ns) 30 unit in 500 mls @ 250 mls/hr IV TITRATE [facility] Tranexamic Acid 1,000 mg/ (Sodium Chloride) 110 mls @ 660 mls/hr IV ONETIME PRN PRN Reason: Bleeding Lactated Ringer's (Ringers, Lactated) 1,000 mls @ 125 mls/hr IV ASDIRECTED [facility] Last Admin: 08/27/19 22:03 Dose: 125 mls/hr Infusion: 08/27/19 22:03 Dose: 125 mls/hr Admin: 08/27/19 14:13 Dose: 125 mls/hr Ibuprofen (Motrin) 800 mg PO Q8H PRN PRN Reason: mild pain or fever Ketorolac Tromethamine (Toradol) 30 mg IVPUSH Q6H [facility] Stop: 08/28/19 12:46 Last Admin: 08/28/19 05:53 Dose: 30 mg Admin: 08/28/19 00:14 Dose: 30 mg Admin: 08/27/19 18:48 Dose: 30 mg Methylergonovine Maleate (Methergine) 0.2 mg IM ONETIME PRN PRN Reason: Excessive Vaginal Bleeding Misoprostol (Cytotec) 1,000 mcg RECTAL ONETIME PRN PRN Reason: excessive bleeding Nalbuphine HCl (Nubain) 5 mg IVPUSH ASDIRECTED PRN PRN Reason: Itching Naloxone HCl (Narcan) 0.1 mg IVPUSH ONETIME PRN PRN Reason: Respiratory Depression Stop: 08/28/19 10:50 Nicotine (Habitrol) 21 mg TRDERM DAILY [facility] Last Admin: 08/27/19 18:48 Dose: 21 mg Ondansetron HCl (Zofran) 4 mg IVPUSH Q6H PRN PRN Reason: Nausea Ondansetron HCl (Zofran) 4 mg IVPUSH Q4H PRN PRN Reason: Nausea/Vomiting Oxycodone/Acetaminophen (Percocet 325-5 Mg) 2 tab PO Q6H PRN PRN Reason: Pain (moderate 4-6) Oxycodone/Acetaminophen (Percocet 325-5 Mg) 1 tab PO Q4H PRN PRN Reason: Pain (moderate 4-6) Oxycodone/Acetaminophen (Percocet 325-5 Mg) 2 tab PO Q4H PRN PRN Reason: Pain (moderate 4-6) Oxytocin (Pitocin) 10 unit IM ASDIRECTED PRN PRN Reason: Excessive Vaginal Bleeding Sodium Chloride (Saline Flush) 10 ml FLUSH ASDIRECTED PRN PRN Reason: Keep Vein Open Sodium Chloride (Saline Flush) 2.5 ml FLUSH ASDIRECTED PRN PRN Reason: Keep Vein Open Sodium Chloride (Normal Saline) 10 ml IV ASDIRECTED PRN PRN Reason: IV Use - Assessment Assessment (Free Text/Narrative):: Status post repeat section postoperative day #1 the patient is doing well ambulatory on regular diet and her pain is under control. Patient expressing the desire to go home later this afternoon we will evaluate a very good possibility to be discharged
--- NOTE | 2019-08-28 10:10 | PCM.DCSUM1 ---
Discharge Summary - Hospital Course Free Text/Narrative:: Discharge home with baby. Follow up in 1 week for incision check. Follow up in 6 weeks for routine visit. Diagnosis: Stroke: No Modified [place] Scale: No Symptoms at All Modified [place] Scale Score: 0 - Discharge Data Discharge Date: 08/28/19 Discharge Disposition: Home, Self-Care 01 Condition: Good - Referral to Home Health Primary Care Physician: Yumiko Colunga NP - Discharge Diagnosis/Problem(s) (1) delivery delivered SNOMED Code(s): 938777408 ICD Code: O82 - ENCOUNTER FOR DELIVERY WITHOUT INDICATION Status: Acute Priority: High Current Visit: Yes - Patient Summary/Data Operative Procedure(s) Performed: Repeat C/section. - Patient Instructions Diet: Regular Diet as Tolerated, Drink 8-10+ Glasses/Day Activity: As Tolerated, Rest and Relax Today Driving: Do Not Drive Showering/Bathing: May Shower Wound/Incision Care: Keep Operative Site/Wound Site Clean and Dry Notify Provider of: Fever, Increased Pain, Swelling and Redness, Drainage, Nausea and/or Vomiting - Discharge Plan *PRESCRIPTION DRUG MONITORING PROGRAM REVIEWED*: Not Applicable *COPY OF PRESCRIPTION DRUG MONITORING REPORT IN PATIENT LUDWIG: Not Applicable Prescriptions/Med Rec: Acetaminophen/oxyCODONE [Percocet 325-5 MG] 1 tab PO Q6H PRN #24 tablet PRN Reason: Pain (Moderate 4-6) Ibuprofen [Motrin] 800 mg PO Q6H PRN #90 tablet PRN Reason: mild pain or fever Home Medications: Home Meds No122/Iron/Folic Acid [ Multi Tablet] 1 tab PO DAILY 06/18/19 [ History] Calcium Carbonate [Tums] 1 tab.chew CHEW ASDIRECTED PRN 08/21/19 [History] Ondansetron [Zofran ODT] 1 tab PO ASDIRECTED PRN 08/21/19 [History] Acetaminophen/oxyCODONE [Percocet 325-5 MG] 1 tab PO Q6H PRN #24 tablet [Rx] Ibuprofen [Motrin] 800 mg PO Q6H PRN #90 tablet 08/28/19 [Rx] Oxygen Therapy Mode: Room Air Referrals: [facility] [Outside] Sabino Franco MD [Physician] - 09/02/19 2:45 pm Valeria Anguiano [facility]errence [Mid-] - 10/08/19 1:30 pm - Discharge Summary/Plan Comment DC Time >30 min.: Yes Discharge Summary/Plan Comment: Discharge home with baby. Follow up in 1 week for incision check. Follow up in 6 weeks for routine visit. - General Info Date of Service: 08/28/19 Admission Dx/Problem (Free Text: Patient Status Order with Admit Dx/Problem 08/27/19 09:45 Patient Status [ADT] Routine Admission Diagnosis/Problem Admission Diagnosis/Problem - planned Functional Status: Reports: Pain Controlled, Tolerating Diet, Ambulating, Urinating - Review of Systems General: Reports: No Symptoms HEENT: Reports: No Symptoms Pulmonary: Reports: No Symptoms Cardiovascular: Reports: No Symptoms Gastrointestinal: Reports: No Symptoms Genitourinary: Reports: No Symptoms Musculoskeletal: Reports: No Symptoms Skin: Reports: No Symptoms Neurological: Reports: No Symptoms Psychiatric: Reports: No Symptoms - Patient Data Vitals - Most Recent: Last Vital Signs Temp 97.0 F 08/28/19 07:40 Pulse 85 08/28/19 09:00 Resp 16 08/28/19 09:00 BP 102/59 L 08/28/19 07:40 Pulse Ox 100 08/28/19 09:00 Weight - Most Recent: 220 lb I&O - Last 24 hours: Intake & Output 08/27/19 08/28/19 08/28/19 22:59 06:59 14:59 Output Total 1275 Balance -1275 Lab Results - Last 24 hrs: Laboratory Results - last 24 hr 08/27/19 08/27/19 08/28/19 Range/Units 11:27 11:27 05:23 WBC 8.01 (4.0-11.0) K/uL RBC 3.31 L (4.30-5.90) M/uL Hgb 10.4 L 9.8 L (12.0-16.0) g/dL Hct 31.2 L 29.7 L (36.0-46.0) % MCV 94.3 (80.0-98.0) fL MCH 31.4 (27.0-32.0) pg MCHC 33.3 (31.0-37.0) g/dL RDW Std Deviation 49.6 (28.0-62.0) fl RDW Coeff of Gamal 14 (11.0-15.0) % Plt Count 198 (150-400) K/uL MPV 10.40 (7.40-12.00) fL Nucleated RBC % 0.0 /100WBC Nucleated RBCs # 0 K/uL Blood Type O POSITIVE Antibody Screen NEGATIVE Med Orders - Current: Current Medications Bisacodyl (Dulcolax) 10 mg RECTAL ONETIME PRN PRN Reason: Constipation Diphenhydramine HCl (Benadryl) 25 mg IVPUSH Q4H PRN PRN Reason: Itching Stop: 08/28/19 10:50 Diphenhydramine HCl (Benadryl) 25 mg IVPUSH Q6H PRN PRN Reason: Itching or Nausea Docusate Sodium (Colace) 100 mg PO BID [facility] Last Admin: 08/27/19 21:53 Dose: 100 mg Emollient Ointment (Lansinoh Hpa) 0 gm TOP ASDIRECTED PRN PRN Reason: Sore Nipples Fentanyl (Sublimaze) 50 mcg IVPUSH Q1H PRN PRN Reason: Pain (severe 7-10) Lactated Ringer's (Ringers, Lactated) 1,000 mls @ 500 mls/hr IV BOLUS [facility] Last Admin: 08/27/19 11:51 Dose: 500 mls/hr Oxytocin/Sodium Chloride (Oxytocin 30 Unit/500 Ml-Ns) 30 unit in 500 mls @ 250 mls/hr IV TITRATE [facility] Tranexamic Acid 1,000 mg/ (Sodium Chloride) 110 mls @ 660 mls/hr IV ONETIME PRN PRN Reason: Bleeding Lactated Ringer's (Ringers, Lactated) 1,000 mls @ 125 mls/hr IV ASDIRECTED [facility] Last Admin: 08/27/19 22:03 Dose: 125 mls/hr Ibuprofen (Motrin) 800 mg PO Q8H PRN PRN Reason: mild pain or fever Ketorolac Tromethamine (Toradol) 30 mg IVPUSH Q6H [facility] Stop: 08/28/19 12:46 Last Admin: 08/28/19 05:53 Dose: 30 mg Methylergonovine Maleate (Methergine) 0.2 mg IM ONETIME PRN PRN Reason: Excessive Vaginal Bleeding Misoprostol (Cytotec) 1,000 mcg RECTAL ONETIME PRN PRN Reason: excessive bleeding Nalbuphine HCl (Nubain) 5 mg IVPUSH ASDIRECTED PRN PRN Reason: Itching Naloxone HCl (Narcan) 0.1 mg IVPUSH ONETIME PRN PRN Reason: Respiratory Depression Stop: 08/28/19 10:50 Nicotine (Habitrol) 21 mg TRDERM DAILY SARIAH Last Admin: 08/27/19 18:48 Dose: 21 mg Ondansetron HCl (Zofran) 4 mg IVPUSH Q6H PRN PRN Reason: Nausea Ondansetron HCl (Zofran) 4 mg IVPUSH Q4H PRN PRN Reason: Nausea/Vomiting Oxycodone/Acetaminophen (Percocet 325-5 Mg) 2 tab PO Q6H PRN PRN Reason: Pain (moderate 4-6) Oxycodone/Acetaminophen (Percocet 325-5 Mg) 1 tab PO Q4H PRN PRN Reason: Pain (moderate 4-6) Oxycodone/Acetaminophen (Percocet 325-5 Mg) 2 tab PO Q4H PRN PRN Reason: Pain (moderate 4-6) Oxytocin (Pitocin) 10 unit IM ASDIRECTED PRN PRN Reason: Excessive Vaginal Bleeding Sodium Chloride (Saline Flush) 10 ml FLUSH ASDIRECTED PRN PRN Reason: Keep Vein Open Sodium Chloride (Saline Flush) 2.5 ml FLUSH ASDIRECTED PRN PRN Reason: Keep Vein Open Sodium Chloride (Normal Saline) 10 ml IV ASDIRECTED PRN PRN Reason: IV Use Discontinued Medications Cefazolin Sodium (Ancef) Confirm Administered Dose 2 gm .ROUTE .STK-MED ONE Stop: 08/27/19 10:57 Citric Acid/Sodium Citrate (Bicitra Solution) 30 ml PO ONETIME ONE Stop: 08/27/19 09:46 Last Admin: 08/27/19 11:51 Dose: 30 ml Cefazolin Sodium/Dextrose 2 gm (/ Premix) 50 mls @ 100 mls/hr IV ONETIME ONE Stop: 08/27/19 10:14 Sodium Chloride (Normal Saline) Confirm Administered Dose 20 mls @ as directed .ROUTE .STK-MED ONE Stop: 08/27/19 10:57 Ketorolac Tromethamine (Toradol) Confirm Administered Dose 30 mg .ROUTE .STK- MED ONE Stop: 08/27/19 10:59 Morphine Sulfate (Duramorph Pf) Confirm Administered Dose 10 mg .ROUTE .STK-MED ONE Stop: 08/27/19 11:03 Oxytocin (Pitocin) Confirm Administered Dose 20 unit .ROUTE .STK-MED ONE Stop: 08/27/19 10:57 Phenylephrine HCl (Eusebio-Synephrine) Confirm Administered Dose 10 mg .ROUTE .STK- MED ONE Stop: 08/27/19 10:54 Rocuronium [place] (Zemuron) Confirm Administered Dose 400 mg .ROUTE .STK-MED ONE Stop: 08/27/19 13:59 - Exam General: Reports: Alert, Oriented, Cooperative, No Acute Distress Lungs: Reports: Normal Respiratory Effort GI/Abdominal Exam: Soft, Non-Tender (Female) Exam: Deferred Rectal (Female) Exam: Deferred Back Exam: Reports: Normal Inspection, Full Range of Motion Extremities: Normal Inspection, Normal Range of Motion, Non-Tender, Normal Capillary Refill Skin: Reports: Warm, Dry, Intact Wound/Incisions: Reports: Healing Well Neurological: Reports: No New Focal Deficit, Normal Gait, Normal Speech, Normal Tone, Sensation Intact Psy/Mental Status: Reports: Alert, Normal Affect, Normal Mood
[2019-08-28 16:18] VITALS: BP 108/59; PULSE 77
[2019-08-28] MEDS ORDERED: Ibuprofen 800 MG Tab PO PRN (18:45)
== END 2019-08-28 18:55 | disposition home or self-care (01) | DRG 788 ==
LOC: MW.OB 09:41
PROVIDERS: ADMIT Obstetrics & Gynecology; ATTEND Obstetrics & Gynecology
PROC: 10D00Z1 Extraction of Products of Conception, Low, Open Approach (ICD-10-PCS; principal; 2019-08-27)
DX: O34.211 Maternal care for low transverse scar from previous cesarean delivery (principal); Z37.0 Single live birth; Z3A.39 39 weeks gestation of pregnancy
CPT/HCPCS: 36415; 51702; 59025; 85014; 85018; 85027; 86592; 86593; 86850; 86900; 86901; A9270-GY; J0690; J1885; J2270; J2370; J2590; J7120

== ENCOUNTER 2019-10-16 14:47 | Emergency (ER) | payer MEDICAID ==
[2019-10-16] MEDS ORDERED: Sodium Chloride 0.9% 10 ML Syringe FLUSH PRN (14:57)
[2019-10-16] MEDS ORDERED: Sodium Chloride 0.9% 2.5 ML Syringe FLUSH PRN (14:57)
[2019-10-16] MEDS ORDERED: Sodium Chloride 0.9% 10 ML SDV IV PRN (14:57)
[2019-10-16] MEDS ORDERED: Acetaminophen 500 MG Tab PO ONE (14:57)
[2019-10-16] MEDS ORDERED: Lactated Ringers 1,000 ML IV ONE (14:57)
[2019-10-16] MEDS ORDERED: Alum Hydrox/Mag Hydrox/Simeth 15 ML, Lidocaine 2% 5 ML PO ONE ×2 (14:57)
--- NOTE | 2019-10-16 14:57 | EDM.PDOC ---
ED HPI GENERAL MEDICAL PROBLEM - General Chief Complaint: Chest Pain Stated Complaint: CHEST PAIN Time Seen by Provider: 10/16/19 14:56 Source of Information: Reports: Patient History Limitations: Reports: No Limitations - History of Present Illness INITIAL COMMENTS - FREE TEXT/NARRATIVE: This patient is a 38-year-old female with a past medical history of a recent C- section, depression presenting with chest and upper abdominal discomfort. About 15 minutes prior to arrival, the patient awoke from a nap with severe, sudden onset epigastric pain radiating up into the chest. Rated as 10 out of 10 , described as "burning". Constant since the onset. No history of prior pain. No history of reflux or coronary artery disease, pancreatitis, gastritis, peptic ulcer disease, or GERD. Denies shortness of breath. No self treatment prior to arrival. No other complaints. Upper Abdomen Pain Score (Numeric/FACES): 8 - Related Data Allergies Allergy/AdvReac Type Severity Reaction Status Date / Time No Known Allergies Allergy Verified 10/16/19 14:59 Home Meds: Home Meds . [No Known Home Meds] 10/16/19 [History] Past Medical History - Past Health History Medical/Surgical History: Denies Medical/Surgical History HEENT History: Reports: Other (See Below) Other HEENT History: has upper denture Cardiovascular History: Reports: None Respiratory History: Reports: None Gastrointestinal History: Reports: Other (See Below) Other Gastrointestinal History: heartburn during Genitourinary History: Reports: STD RETURNS CLERK History: Reports: , Spontaneous Other RETURNS CLERK History: Surgery on her cervix, pt is unsure of what kind. Previous CS Musculoskeletal History: Reports: Other (See Below) Other Musculoskeletal History: I&D of leg for MRSA 2010...states was cleared Neurological History: Reports: None Psychiatric History: Reports: Depression Endocrine/Metabolic History: Reports: None Hematologic History: Reports: None Immunologic History: Reports: None Oncologic (Cancer) History: Other Oncologic History: melanoma of skin, rt arm & rt inner thigh Dermatologic History: Reports: Melanoma - Infectious Disease History Infectious Disease History: Reports: None Other Infectious Disease History: Hx of MRSA, cleared - Past Surgical History Head Surgeries/Procedures: Reports: None HEENT Surgical History: Reports: None Cardiovascular Surgical History: Reports: None Respiratory Surgical History: Reports: None GI Surgical History: Reports: None Female Surgical History: Reports: Section Endocrine Surgical History: Reports: None Neurological Surgical History: Reports: None Musculoskeletal Surgical History: Reports: None Oncologic Surgical History: Reports: None Dermatological Surgical History: Reports: Skin Biopsy Social & Family History - Family History Family Medical History: Noncontributory Respiratory: Reports: COPD - Caffeine Use Caffeine Use: Reports: Soda ED ROS GENERAL - Review of Systems Review Of Systems: See Below Constitutional: Denies: Fever, Chills HEENT: Reports: No Symptoms Respiratory: Denies: Shortness of Breath Cardiovascular: Reports: Chest Pain, Lightheadedness. Denies: Edema GI/Abdominal: Reports: Abdominal Pain, Nausea, Vomiting. Denies: Black Stool, Bloody Stool, Hematemesis, Hematochezia, Melena : Reports: No Symptoms Musculoskeletal: Reports: No Symptoms Skin: Reports: No Symptoms Neurological: Reports: No Symptoms Psychiatric: Reports: No Symptoms Hematologic/Lymphatic: Reports: No Symptoms Immunologic: Reports: No Symptoms ED EXAM, GENERAL - Physical Exam Exam: See Below Free Text/Narrative:: Vital signs reviewed. Nursing notes reviewed. Constitutional: Awake, alert, uncomfortable appearing woman. Head: Normocephalic, atraumatic. Eyes: EOMI, conjunctiva normal, no discharge, no scleral icterus. Ears, Nose, Throat: External ears and nose normal, moist oral mucosa. Cardiovascular: 2+ radial pulses bilaterally, capillary refill less than 2 seconds. Pulmonary: normal work of breathing, no accessory muscle use. CTA BL Abdomen/GI: Soft, moderate tenderness in the epigastrium in the right upper quadrant, nondistended, no guarding or rigidity, no masses. Musculoskeletal: No deformities. Integumentary: Appropriate color for ethnicity, warm, dry, no pallor or jaundice , no rash. Neurologic: Alert, answering questions appropriately, normal speech, no facial droop, moving all extremities well. CN II through XII intact. 5/5 strength and sensation intact to light touch the bilateral upper extremities. Normal [id number]. 5/5 thigh flexion bilaterally. Psychiatric: Appropriate mood and affect, normal thought process. EKG INTERPRETATION EKG Interpretation Comments: 12-Lead ECG Interpretation Acquired: 2:51 PM Rhythm: Sinus rhythm Rate: 71 bpm [place]: Normal Intervals: Normal Ectopy: None Ischemic Changes: None apparent RV Strain: No obvious RV strain pattern. ST Segments/T-Waves: No notable changes Interpretation: Unremarkable Course - Vital Signs Text/Narrative:: 38-year-old female presenting with sudden onset epigastric/right upper quadrant abdominal pain radiating to the chest. Patient hemodynamically stable, afebrile, well-appearing, looks nontoxic. Differential diagnosis includes but is not limited to: acute coronary syndrome, pulmonary embolism, gastritis, reflux, pancreatitis, peptic ulcer disease, AAA, cholecystitis, biliary colic, esophageal rupture, Boerhaave syndrome, thoracic aortic dissection, and many others Twelve-lead EKG looks nonischemic. CBC is unremarkable. Normal electrolytes and renal function. Normal LFTs. Negative troponin. Negative lipase, negative test. Chest x-rays are clear. Abdominal ultrasound unremarkable. Patient continued to complain of some mild midline epigastric pain radiating up into the chest after symptomatic treatment, so we pursued CT imaging of the chest and abdomen with an aortogram. 5:49 PM: I reviewed the CT imaging of the chest abdomen and pelvis, I noticed no obvious abnormalities but we are waiting for radiology reads. The patient is resting comfortably. 6:38 PM: Chest x-rays were concerning for a possible nodule within the right upper chest. No other acute findings. We obtained CT angiography of the chest and abdomen, which showed no evidence of aneurysm or dissection, no evidence of pulmonary embolism, and did not demonstrate the pulmonary nodule that was seen on the chest x-ray report. No acute findings on CT overall. We considered a broad range of differentials for the patient's pain. There is no objective evidence of myocardial ischemia by biomarker testing or her EKG. Low suspicion for pulmonary embolism given lack of thrombus seen on chest angiography, lack of tachycardia or hypoxia, no lower extremity swelling, and no historical risk factors for VTE. Her pain is improved after a GI cocktail, which argues against PE. No evidence of AAA on imaging. Gallbladder looks normal by ultrasound. No evidence of dissection on CT. No history of repeated vomiting to suggest esophageal rupture or Boerhaave syndrome. Suspect that this could be reflux or gastritis given improvement with a GI cocktail. Given well appearance, symptomatic improvement, and negative work-up, we will plan to discharge the patient home with recommendations for [id number] Maalox max, omeprazole, and Tylenol. Plan: Patient is stable to discharge home with outpatient primary care follow- up. Strict emergency department return precautions were provided, patient indicated understanding. All questions were answered prior to departure. Discharged in good condition. Last Recorded V/S: Last Vital Signs Temp 36.2 C 10/16/19 14:56 Pulse 68 10/16/19 17:46 Resp 18 10/16/19 17:46 BP 121/70 10/16/19 17:46 Pulse Ox 98 10/16/19 17:46 - Orders/Labs/Meds Orders: Active Orders 24 hr Category Date Time Status Cardiac Monitoring [RC] . DIRECTED Care 10/16/19 14:57 Active EKG 12 Lead [EKG Documentation Completion] [RC] STAT Care 10/16/19 17:23 Active Pulse Oximetry [RC] ASDIRECTED Care 10/16/19 14:57 Active Ang Abdomen [CT] Stat Exams 10/16/19 16:34 Taken Peripheral IV Insertion Adult [OM.PC] Stat Oth 10/16/19 14:57 Ordered Labs: Laboratory Tests 10/16/19 10/16/19 10/16/19 Range/Units 15:00 15:00 15:00 WBC 4.76 (4.0-11.0) K/uL RBC 3.98 L (4.30-5.90) M/uL Hgb 11.9 L (12.0-16.0) g/dL Hct 36.4 (36.0-46.0) % MCV 91.5 (80.0-98.0) fL MCH 29.9 (27.0-32.0) pg MCHC 32.7 (31.0-37.0) g/dL RDW Std Deviation 47.4 (28.0-62.0) fl RDW Coeff of Gamal 14 (11.0-15.0) % Plt Count 235 (150-400) K/uL MPV 10.40 (7.40-12.00) fL Neut % (Auto) 52.4 (48.0-80.0) % Lymph % (Auto) 37.6 (16.0-40.0) % [place] % (Auto) 9.2 (0.0-15.0) % Eos % (Auto) 0.6 (0.0-7.0) % Baso % (Auto) 0.2 (0.0-1.5) % Neut # (Auto) 2.5 (1.4-5.7) K/uL Lymph # (Auto) 1.8 (0.6-2.4) K/uL [place] # (Auto) 0.4 (0.0-0.8) K/uL Eos # (Auto) 0.0 (0.0-0.7) K/uL Baso # (Auto) 0.0 (0.0-0.1) K/uL Nucleated RBC % 0.0 /100WBC Nucleated RBCs # 0 K/uL Sodium 137 (136-145) mmol/L Potassium 3.9 (3.5-5.1) mmol/L Chloride 104 (98-107) mmol/L Carbon Dioxide 27.7 (21.0-32.0) mmol/L BUN 11 (7.0-18.0) mg/dL Creatinine 0.8 (0.6-1.0) mg/dL Est Cr Clr Drug Dosing 100.62 mL/min Estimated GFR (MDRD) > 60.0 ml/min Glucose 85 (74-106) mg/dL Calcium 8.5 (8.5-10.1) mg/dL Total Bilirubin 0.3 (0.2-1.0) mg/dL AST 18 (15-37) IU/L ALT 40 (14-63) IU/L Alkaline Phosphatase 86 (46-116) U/L Troponin I < 0.050 (0.000-0.056) ng/mL Total Protein 6.7 (6.4-8.2) g/dL Albumin 3.5 (3.4-5.0) g/dL Globulin 3.2 (2.6-4.0) g/dL Albumin/Globulin Ratio 1.1 (0.9-1.6) Lipase 112 (73-393) U/L HCG, Qual NEGATIVE (NEG) Meds: Medications Discontinued Medications Generic Name Dose Route Start Last Admin Trade Name Freq PRN Reason Stop Dose Admin Acetaminophen 1,000 mg 10/16/19 14:57 10/16/19 15:09 Tylenol Extra Strength PO 10/16/19 14:58 1,000 mg ONETIME ONE Administration Al Hydroxide/Mg Hydroxide 15 0 ml 10/16/19 14:57 10/16/19 15:09 ml/ Lidocaine HCl 5 ml PO 10/16/19 14:58 1 each ONETIME ONE Administration Lactated Ringer's 1,000 mls @ 1,000 mls/hr 10/16/19 14:57 10/16/19 15:10 Ringers, Lactated IV 10/16/19 15:56 1,000 mls/hr .BOLUS ONE Administration Iopamidol 100 ml 10/16/19 17:08 10/16/19 17:09 Isovue Multipack-370 (76%) IVPUSH 10/16/19 17:09 100 ml ONETIME ONE Administration Sodium Chloride 10 ml 10/16/19 14:57 10/16/19 15:10 Saline Flush FLUSH 10 ml ASDIRECTED PRN Administration Keep Vein Open Sodium Chloride 2.5 ml 10/16/19 14:57 Saline Flush FLUSH ASDIRECTED PRN Keep Vein Open Sodium Chloride 10 ml 10/16/19 14:57 Normal Saline IV ASDIRECTED PRN IV Use Departure - Departure Time of Disposition: 18:51 Disposition: Home, Self-Care 01 Condition: Good Clinical Impression: Epigastric abdominal pain, Atypical chest pain Instructions: Nonspecific Chest Pain, Adult, Abdominal Pain, Adult, Easy-to- Read, Pain Without a Known Cause Referrals: [facility] [Provider Group] - 1 Week (Please follow-up with your doctor in the next week for follow-up of your symptoms. Our family medicine clinic information is located here in case you need to find a doctor.) Forms: ED Department Discharge Additional Instructions: Thank you for choosing the [facility] emergency department in [place] for your medical needs today. It was a pleasure caring for you. You were seen in the emergency department for abdominal pain and chest pain. Your EKG, blood work, x-ray, ultrasound, and CT studies are all reassuring. We do not see an emergency medical condition that would require you to be admitted to the hospital. I do recommend that you take [id number] Maalox max, omeprazole, and Tylenol to help try to treat your pain. You should follow-up with your doctor in the next few days for reevaluation and return to the emergency department immediately if you feel worse. The following information is given to patients seen in the emergency department who are being discharged. This information is to outline your options for follow -up care. We provide all patients seen in our emergency department with a follow -up referral. The need for follow-up, as well as the timing and circumstances, are variable depending upon the specifics of your emergency department visit. If you don't have a primary care physician on staff, we will provide you with a referral. We always advise you to contact your personal physician following an emergency department visit to inform them of the circumstance of the visit and for follow-up with them and/or the need for any referrals to a consulting specialist. The emergency department will also refer you to a specialist when appropriate. This referral assures that you have the opportunity for follow-up care with a specialist. All of these measure are taken in an effort to provide you with optimal care, which includes your follow-up. Under all circumstances we always encourage you to contact your private physician who remains a resource for coordinating your care. When calling for follow-up care, please make the office aware that this follow-up is from your recent emergency room visit. If for any reason you are refused follow-up, please contact the [facility] Emergency Department at and asked to speak to the emergency department charge nurse. If you do not have a primary care physician that is caring for you, you can contact these clinics below to set up an appointment to establish care: [facility] [address] [place] [id number] [facility] [address] [place] [id number] Sepsis Event Note - Focused Exam Date Exam was Performed: 10/17/19 Time Exam was Performed: 07:20 - My Orders Last 24 Hours: My Active Orders 10/16/19 14:57 Cardiac Monitoring [RC] . DIRECTED Pulse Oximetry [RC] ASDIRECTED Peripheral IV Insertion Adult [OM.PC] Stat 10/16/19 16:34 Ang Abdomen [CT] Stat 10/16/19 17:23 EKG 12 Lead [EKG Documentation Completion] [RC] STAT - Assessment/Plan Last 24 Hours: My Active Orders 10/16/19 14:57 Cardiac Monitoring [RC] . DIRECTED Pulse Oximetry [RC] ASDIRECTED Peripheral IV Insertion Adult [OM.PC] Stat 10/16/19 16:34 Ang Abdomen [CT] Stat 10/16/19 17:23 EKG 12 Lead [EKG Documentation Completion] [RC] STAT
[2019-10-16 15:42] LABS: BLOOD UREA NITROGEN,BUN 11 mg/dL (7.0-18.0); CARBON DIOXIDE,CO2 27.7 mmol/L (21.0-32.0); CHLORIDE,CL 104 mmol/L (98-107); GLUCOSE RANDOM 85 mg/dL (74-106); LIPASE 112 U/L (73-393); POTASSIUM,K 3.9 mmol/L (3.5-5.1); SODIUM,NA 137 mmol/L (136-145)
--- NOTE | 2019-10-16 16:02 | US ---
Limited abdominal ultrasound: Multiple real-time images of the upper right abdomen were obtained. Liver contains no focal abnormality. Liver may be slightly echogenic compatible with mild fatty infiltration. Right kidney shows no hydronephrosis or mass and has a length of 10.8 cm. Gallbladder contains no shadowing gallstones, gallbladder wall thickening or biliary duct dilatation. Pancreas is incompletely seen. Visualized portions of the pancreas are within normal limits. Inferior vena cava is patent. Aorta shows no aneurysm. Impression: 1. Possible mild fatty infiltration within the liver. 2. No additional abnormality is appreciated on right upper quadrant abdominal ultrasound. Diagnostic code #2 This report was dictated in MDT
--- NOTE | 2019-10-16 16:32 | CR ---
Chest: 2 views of the chest were obtained. Comparison: No prior chest x-rays available. Heart size and mediastinum are normal. Lungs are clear with no acute parenchymal change. Slight nodular density is suggested within the upper right lung. Bony structures appear within normal limits for the patient's age. Impression: 1. Possible nodule within the right upper chest. Noncontrast chest CT recommended to further evaluate. 2. Nothing acute is otherwise seen. Diagnostic code #9 This report was dictated in MDT
[2019-10-16] MEDS ORDERED: Iopamidol 755 MG/ML 500 ML Multipack Bottle IVPUSH ONE (17:08)
[2019-10-16 17:47] VITALS: BP 121/70; PULSE 68
--- NOTE | 2019-10-19 12:44 | CT ---
EXAM DATE: 10/16/19 PATIENT'S AGE: 38 Technique: Multiple axial sections through the chest were obtained. Intravenous contrast was utilized. Comparison: Prior chest x-ray of 10/16/19. Findings: Aorta shows no aneurysm. No dissection is seen. Pulmonary arteries show no filling defects to indicate pulmonary embolism. Mediastinum and hilar region show no adenopathy. No pericardial thickening is seen. Lung window settings were reviewed. No pulmonary nodule is noted within the right upper lung as suggested on chest x-ray. Lungs show no acute parenchymal change. No pleural effusions or pneumothorax is seen. Visualized abdominal structures shows a small hiatal hernia. Aorta and proximal iliac arteries show no dilatation or dissection. Renal artery show no stenosis. Celiac axis and superior mesenteric artery show no stenosis. Inferior mesenteric artery also shows no stenosis. Bone window settings were reviewed. No acute osseous finding is appreciated. Impression: 1. Thoracic and abdominal aorta shows no aneurysm or dissection. 2. No pulmonary embolism is seen. 3. Small hiatal hernias is seen. No pulmonary nodule noted within the right upper lung as questioned on recent chest x-ray. 4. Nothing acute is seen on CT study of the chest. Diagnostic code #1 This report was dictated in MDT Report Signed by Proxy. AMBROSIO
== END 2019-10-16 19:02 | disposition home or self-care (01) ==
LOC: MW.ED 14:47
DX: R10.13 Epigastric pain (principal); R07.89 Other chest pain
CPT/HCPCS: 36415; 71046; 71275; 74175; 76705; 80053; 83690; 84484; 84703; 85025; 93005; 96360; 99285; A9270; J7120; Q9967; 99284

== ENCOUNTER 2019-11-03 10:38 | Emergency (ER) | payer MEDICAID, OTHER ==
--- NOTE | 2019-11-03 11:09 | EDM.PDOC ---
ED HPI GENERAL MEDICAL PROBLEM - General Chief Complaint: General Stated Complaint: SINUS INFECTION Time Seen by Provider: 11/03/19 10:41 Source of Information: Reports: Patient History Limitations: Reports: No Limitations - History of Present Illness INITIAL COMMENTS - FREE TEXT/NARRATIVE: Presents reporting her employer sent her and because she has a cough. She works at a local [employer]. He wants her tested for COVID. Patient reports a 24-hour history of nasal congestion, sore throat, cough and "eyes burning". [id number] smoking history. No fever, ear fullness, breathing problems, wheeze, or history of seasonal or environmental allergies. Headache Pain Score (Numeric/FACES): 3 - Related Data Allergies Allergy/AdvReac Type Severity Reaction Status Date / Time No Known Allergies Allergy Verified 10/16/19 14:59 Home Meds: Home Meds . 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 Previous CS Musculoskeletal History: Reports: Other (See Below) Other Musculoskeletal History: I&D of leg for MRSA 2009...states was cleared Neurological History: Reports: None Psychiatric History: Reports: Depression Endocrine/Metabolic History: Reports: None Hematologic History: Reports: None Immunologic History: Reports: None Oncologic (Cancer) History: Other Oncologic History: melanoma of skin, rt arm & rt inner thigh Dermatologic History: Reports: Melanoma - Infectious Disease History Infectious Disease History: Reports: Chicken Pox Other Infectious Disease History: Hx of MRSA, cleared - Past Surgical History Head Surgeries/Procedures: Reports: None HEENT Surgical History: Reports: None Cardiovascular Surgical History: Reports: None Respiratory Surgical History: Reports: None GI Surgical History: Reports: None Female Surgical History: Reports: Section Endocrine Surgical History: Reports: None Neurological Surgical History: Reports: None Musculoskeletal Surgical History: Reports: None Oncologic Surgical History: Reports: None Dermatological Surgical History: Reports: Skin Biopsy Social & Family History - Family History Family Medical History: Noncontributory Respiratory: Reports: COPD - Tobacco Use Smoking Status *Q: Current Every Day Smoker Years of Tobacco use: 20 Packs/Tins Daily: 0.5 - Caffeine Use Caffeine Use: Reports: Coffee Other Caffeine Use: 1/day - Recreational Drug Use Recreational Drug Use: No ED ROS GENERAL - Review of Systems Review Of Systems: Comprehensive ROS is negative, except as noted in HPI. ED EXAM, GENERAL - Physical Exam Exam: See Below Exam Limited By: No Limitations General Appearance: Alert, No Apparent Distress Eye Exam: Bilateral Eye: PERRL, Other (no injection or tearing) Ears: Normal External Exam, Normal TMs Nose: Normal Inspection Throat/Mouth: Inflammation (pharyngeal, erythematous, no swelling or exudates) Head: Atraumatic, Normocephalic Neck: Normal Inspection, Lymphadenopathy (L) (mild tender, enlarged), Lymphadenopathy (R) (mild tender, enlarged) Respiratory/Chest: No Respiratory Distress, Lungs Clear, Normal Breath Sounds. No: Wheezing Cardiovascular: Normal Peripheral Pulses, Regular Rate, Rhythm, No Edema, No Murmur Neurological: Alert, Oriented Psychiatric: Normal Affect, Normal Mood Skin Exam: Warm, Dry, Intact, Normal Color, No Rash Course - Vital Signs Last Recorded V/S: Last Vital Signs Temp 36.2 C 11/03/19 10:42 Pulse 93 11/03/19 10:42 Resp 18 11/03/19 10:42 BP 118/77 11/03/19 10:42 Pulse Ox 97 11/03/19 10:42 - Orders/Labs/Meds Orders: Active Orders 24 hr Category Date Time Status CULTURE STREP A CONFIRMATION [RM] Stat Lab 11/03/19 11:10 Results STREP SCRN A RAPID W CULT CONF [RM] Stat Lab 11/03/19 11:10 Results Labs: Laboratory Tests 11/03/19 Range/Units 11:10 SARS-CoV-2 RNA (RT-PCR) NEGATIVE (NEGATIVE) Departure - Departure Time of Disposition: 12:02 Disposition: Home, Self-Care 01 Condition: Good Clinical Impression: Sinusitis - Discharge Information Referrals: PCP,None [Primary Care Provider] - [facility] [Outside] [facility] [Outside] Forms: ED Department Discharge Additional Instructions: The following information is given to patients seen in the emergency department who are being discharged to home. This information is to outline your options for follow-up care. We provide all patients seen in our emergency department with a follow-up referral. The need for follow-up, as well as the timing and circumstances, are variable depending upon the specifics of your emergency department visit. If you don't have a primary care physician on staff, we will provide you with a referral. We always advise you to contact your personal physician following an emergency department visit to inform them of the circumstance of the visit and for follow-up with them and/or the need for any referrals to a consulting specialist. The emergency department will also refer you to a specialist when appropriate. This referral assures that you have the opportunity for follow-up care with a specialist. All of these measure are taken in an effort to provide you with optimal care, which includes your follow-up. Under all circumstances we always encourage you to contact your private physician who remains a resource for coordinating your care. When calling for follow-up care, please make the office aware that this follow-up is from your recent emergency room visit. If for any reason you are refused follow-up, please contact the [facility] Emergency Department at and asked to speak to the emergency department charge nurse. 1. Flonase or Nasacort 2 sprays in each nostril at bedtime until symptoms improve. May repeat anytime symptoms recur. 2. Stop smoking 3. Return to work as your COVID and strep screens are both negative. Use what ever infection control procedures are required by your employer. Sepsis Event Note (ED) - Evaluation Sepsis Screening Result: No Definite Risk - Focused Exam Vital Signs: Vital Signs Temp Pulse Resp BP Pulse Ox 11/03/19 10:42 36.2 C 93 18 118/77 97 - My Orders Last 24 Hours: My Active Orders 11/03/19 11:10 CULTURE STREP A CONFIRMATION [RM] Stat STREP SCRN A RAPID W CULT CONF [RM] Stat - Assessment/Plan Last 24 Hours: My Active Orders 11/03/19 11:10 CULTURE STREP A CONFIRMATION [RM] Stat STREP SCRN A RAPID W CULT CONF [RM] Stat
[2019-11-03 12:19] VITALS: BP 117/84; PULSE 87
== END 2019-11-03 12:14 | disposition home or self-care (01) ==
LOC: MW.ED 10:38
DX: J32.9 Chronic sinusitis, unspecified (principal); F17.210 Nicotine dependence, cigarettes, uncomplicated; Z20.828 Contact with and (suspected) exposure to other viral communicable diseases
CPT/HCPCS: 87081; 87880-QW; 99282; 99284; U0002

== ENCOUNTER 2020-03-25 20:45 | Emergency (ER) | payer MEDICAID ==
--- NOTE | 2020-03-25 20:49 | EDM.PDOC ---
ED HPI GENERAL MEDICAL PROBLEM - General Chief Complaint: Respiratory Problem Stated Complaint: COVID TEST Time Seen by Provider: 03/25/20 20:47 Source of Information: Reports: Patient History Limitations: Reports: No Limitations - History of Present Illness INITIAL COMMENTS - FREE TEXT/NARRATIVE: HISTORY AND PHYSICAL: History of present illness: Patient is a 39-year-old female who presents to the emergency room with complaints of headache, sore throat, dry nonproductive cough and the loss of taste and smell. Symptoms have been ongoing for the past 3 to 5 days. Her daughter also has symptoms and they are concerned they may have COVID-19. Patient denies any neck pain/stiffness, change in vision, syncope or near syncope. Denies any chest pain, back pain, shortness of breath. Denies any abdominal pain, nausea, vomiting, diarrhea, constipation or dysuria. No concerns of . Has not noted any blood in urine or stool. Patient has been eating and drinking appropriately. Review of systems: As per history of present illness and below otherwise all systems reviewed and negative. Past medical history: As per history of present illness and as reviewed below otherwise noncontributory. Surgical history: As per history of present illness and as reviewed below otherwise noncontributory. Social history: See social history for further information Family history: As per history of present illness and as reviewed below otherwise noncontributory. Physical exam: General: Well developed and well nourished. Alert and orientated x 3. Nontoxic in appearance and in no acute distress. Vital signs are stable and have been reviewed by me. Nursing notes were reviewed. HEENT: Atraumatic, normocephalic, pupils equal and reactive bilaterally, negative for conjunctival pallor or scleral icterus, mucous membranes moist, TMs normal bilaterally, throat clear, neck supple, nontender, trachea midline. No drooling or trismus noted. No meningeal signs. No hot potato voice noted. Lungs: Clear to auscultation, breath sounds equal bilaterally, chest nontender. Normal work of breathing, no accessory muscles used. Heart: S1S2, regular rate and rhythm without overt murmur Abdomen: Soft, nondistended, nontender. Negative for masses or hepatosplenomegaly. Negative for costovertebral tenderness. Skin: Intact, warm, dry. No lesions or rashes noted. Hematologic: No petechiae or purpra. Mucosa appropriate color and normal nail bed color and refill. Extremities: Atraumatic, moves all extremities per self without difficulty or deficits, negative for cords or calf pain. Neurovascular unremarkable. Neuro: Awake, alert, oriented. Cranial nerves II through XII unremarkable. Cerebellum unremarkable. Motor and sensory unremarkable throughout. Exam nonfocal. Psychiatric: Mood and affect are appropriate. Normal thought process. Answering questions appropriately. Notes: COVID-19 screening is negative, but family members and family member that was brought it was positive today. Will treat as a positive COVID. I have talked with the patient about today's findings, in addition to providing specific details for plan of care. Reassessment at the time of disposition demonstrates that the patient is in no acute distress. The patient is stable for discharge, counseling was provided and we discussed in great detail signs and symptoms that would prompt them to return to the Emergency Department. Medication, follow up and supportive care measures were reviewed and discussed. Voices understanding and is agreeable to plan of care. Denies any further questions or concerns at this time. Diagnostics: COVID Therapeutics: None Prescription: None Impression: COVID-19 Plan: 1. Your COVID-19 screening is positive. That means you do have the coronavirus and you are considered contagious. Your vital signs and oxygen saturation are well enough that you were able to monitor your symptoms at home. Continue to monitor for trouble breathing, new confusion or inability to arouse, bluish lips or face or any of the other symptoms we discussed -if this occurs please return to the emergency room. 2. Please self quarantine over the next 10 days. Inform any persons that you have been in contact with since you started becoming symptomatic that you have tested positive; they should be made aware and take the appropriate steps as needed. 3. You can take NyQuil during the evening to help get a restful night sleep. May alternate Tylenol and ibuprofen as needed for pain and fever management. 4. The [facility] department will be calling you and following up with you. The [place] COVID 19 Hotline phone number , They are open Saturday - Saturday 7am - 7pm. Follow up with your primary care provider for re-evaluation and re-testing after the 10 day quarantine and discuss when you should be seen. Definitive disposition and diagnosis as appropriate pending reevaluation and review of above. bilateral arm Pain Score (Numeric/FACES): 4 - Related Data Allergies Allergy/AdvReac Type Severity Reaction Status Date / Time No Known Allergies Allergy Verified 03/25/20 21:01 Home Meds: Home Meds . 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 Previous CS Musculoskeletal History: Reports: Other (See Below) Other Musculoskeletal History: I&D of leg for MRSA 2010...states was cleared Neurological History: Reports: None Psychiatric History: Reports: Depression Endocrine/Metabolic History: Reports: None Hematologic History: Reports: None Immunologic History: Reports: None Oncologic (Cancer) History: Other Oncologic History: melanoma of skin, rt arm & rt inner thigh Dermatologic History: Reports: Melanoma - Infectious Disease History Infectious Disease History: Reports: Chicken Pox Other Infectious Disease History: Hx of MRSA, cleared - Past Surgical History Head Surgeries/Procedures: Reports: None HEENT Surgical History: Reports: None Cardiovascular Surgical History: Reports: None Respiratory Surgical History: Reports: None GI Surgical History: Reports: None Female Surgical History: Reports: Section Endocrine Surgical History: Reports: None Neurological Surgical History: Reports: None Musculoskeletal Surgical History: Reports: None Oncologic Surgical History: Reports: None Dermatological Surgical History: Reports: Skin Biopsy Social & Family History - Family History Family Medical History: No Pertinent Family History Respiratory: Reports: COPD - Caffeine Use Caffeine Use: Reports: Coffee Other Caffeine Use: 1/day ED ROS GENERAL - Review of Systems Review Of Systems: Comprehensive ROS is negative, except as noted in HPI. ED EXAM, GENERAL - Physical Exam Exam: See Below (See dictation) Course - Vital Signs Last Recorded V/S: Last Vital Signs Temp 96.9 F 03/25/20 22:20 Pulse 88 03/25/20 22:20 Resp 20 03/25/20 22:20 BP 110/75 03/25/20 22:20 Pulse Ox 97 03/25/20 22:20 - Orders/Labs/Meds Orders: Active Orders 24 hr Category Date Time Status CORONAVIRUS COVID-19 PCR PHL Stat Lab 03/25/20 21:10 Received Labs: Laboratory Tests 03/25/20 Range/Units 21:10 SARS CoV-2 RNA Rapid LACHELLE NEGATIVE (NEGATIVE) Departure - Departure Time of Disposition: 16:18 Disposition: Home, Self-Care 01 Clinical Impression: COVID-19 - Discharge Information Instructions: COVID-19: How to Protect Yourself and Others - [facility] Referrals: Sita Pacheco NP [Primary Care Provider] - Forms: ED Department Discharge Additional Instructions: The following information is given to patients seen in the emergency department who are being discharged to home. This information is to outline your options for follow-up care. We provide all patients seen in our emergency department with a follow-up referral. The need for follow-up, as well as the timing and circumstances, are variable depending upon the specifics of your emergency department visit. If you don't have a primary care physician on staff, we will provide you with a referral. We always advise you to contact your personal physician following an emergency department visit to inform them of the circumstance of the visit and for follow-up with them and/or the need for any referrals to a consulting specialist. The emergency department will also refer you to a specialist when appropriate. This referral assures that you have the opportunity for follow-up care with a specialist. All of these measure are taken in an effort to provide you with optimal care, which includes your follow-up. Under all circumstances we always encourage you to contact your private physician who remains a resource for coordinating your care. When calling for follow-up care, please make the office aware that this follow-up is from your recent emergency room visit. If for any reason you are refused follow-up, please contact the [facility] Emergency Department at and asked to speak to the emergency department charge nurse. [facility] [address] [place] [id number] [place] [address] Thank you for choosing the [facility] emergency department in [place] for your medical needs today. It was a pleasure caring for you. Today you were seen in the emergency department for COVID-19 screening - My Orders Last 24 Hours: My Active Orders 03/25/20 21:10 CORONAVIRUS COVID-19 PCR PHL Stat - Assessment/Plan Last 24 Hours: My Active Orders 03/25/20 21:10 CORONAVIRUS COVID-19 PCR PHL Stat
[2020-03-25 22:20] VITALS: BP 110/75; PULSE 88
== END 2020-03-25 22:22 | disposition home or self-care (01) ==
LOC: MW.ED 20:45
DX: U07.1 COVID-19 (principal)
CPT/HCPCS: 99282; 99283; U0002

== ENCOUNTER 2022-02-25 16:02 | Emergency (ER) | payer MEDICAID ==
[2022-02-25] MEDS ORDERED: Ketorolac 60 MG/2 ML SDV IM ONE (17:16)
[2022-02-25] MEDS ORDERED: Acetaminophen/Codeine 120-12 MG/5 ML Soln 5 ML UD Cup PO ONE (17:19)
[2022-02-25 17:24] VITALS: BP 116/95; PULSE 106
[2022-02-25 18:40] LABS: CORONAVIRUS COVID-19 NAA NEGATIVE (NEGATIVE); INFLUENZA A NAA NEGATIVE (NEGATIVE); INFLUENZA B NAA NEGATIVE (NEGATIVE)
== END 2022-02-25 18:58 | disposition home or self-care (01) ==
LOC: MW.ED 16:02
DX: J40 Bronchitis, not specified as acute or chronic (principal); Z20.822 Contact with and (suspected) exposure to COVID-19
CPT/HCPCS: 0240U; 71045; 96372; 99283; A9270; J1885

== ENCOUNTER 2022-07-18 06:23 | Emergency (ER) | payer MEDICAID ==
[2022-07-18] MEDS ORDERED: Acetaminophen 500 MG Tab PO ONE (06:31)
[2022-07-18] MEDS ORDERED: Ibuprofen 600 MG Tab PO ONE (06:31)
[2022-07-18] MEDS ORDERED: Prochlorperazine 10 MG Tab PO ONE (06:31)
[2022-07-18 07:03] VITALS: BP 114/77; PULSE 97
[2022-07-18 07:12] LABS: CORONAVIRUS COVID-19 NAA NEGATIVE (NEGATIVE); INFLUENZA A NAA NEGATIVE (NEGATIVE); INFLUENZA B NAA NEGATIVE (NEGATIVE)
== END 2022-07-18 06:45 | disposition home or self-care (01) ==
LOC: MW.ED 06:23
DX: U07.1 COVID-19 (principal)
CPT/HCPCS: 0240U; 99283; A9270; Q0164

== ENCOUNTER 2023-01-16 06:10 | Emergency (ER) | payer MEDICAID ==
[2023-01-16] MEDS ORDERED: Sodium Chloride 0.9% 2.5 ML Syringe FLUSH PRN (06:16)
[2023-01-16] MEDS ORDERED: Sodium Chloride 0.9% 10 ML Syringe FLUSH PRN (06:16)
[2023-01-16] MEDS ORDERED: Lactated Ringers 1,000 ML IV SCH (06:30)
[2023-01-16 06:55] LABS: BASOPHILS PERCENT AUTO 0.2 % (0.0-1.5); HEMATOCRIT 35.5 % (36.0-46.0); HEMOGLOBIN 11.3 g/dL (12.0-16.0); LYMPHOCYTES ABSOLUTE AUTO 1.4 K/uL (0.6-2.4); LYMPHOCYTES PERCENT AUTO 35.1 % (16.0-40.0); MEAN CORPUSCULAR HEMOGLOBIN 25.8 pg (27.0-32.0); MEAN CORPUSCULAR HGB CONC 31.8 g/dL (31.0-37.0); MEAN CORPUSCULAR VOLUME 81.1 fL (80.0-98.0); MONOCYTES ABSOLUTE AUTO 0.5 K/uL (0.0-0.8); MONOCYTES PERCENT AUTO 11.7 % (0.0-15.0); NEUTROPHILS ABSOLUTE AUTO 2.1 K/uL (1.4-5.7); NRBC ABSOLUTE 0 K/uL; PLATELET COUNT,PLT 214 K/uL (150-400); RED BLOOD CELL COUNT 4.38 M/uL (4.30-5.90); WHITE BLOOD CELL COUNT,WBC 4.02 K/uL (4.0-11.0)
[2023-01-16 07:36] LABS: HCG QUALITATIVE,SERUM NEGATIVE (NEG)
[2023-01-16 07:38] LABS: ALBUMIN 3.4 g/dL (3.4-5.0); BILIRUBIN TOTAL 0.2 mg/dL (0.2-1.0); CARBON DIOXIDE,CO2 25.6 mmol/L (21.0-32.0); CREATININE 0.7 mg/dL (0.6-1.0); EST CRCL DRUG DOSING (CG) 110.53 mL/min; POTASSIUM,K 3.7 mmol/L (3.5-5.1); PROTEIN TOTAL,TP 6.9 g/dL (6.4-8.2)
[2023-01-16 08:10] LABS: APPEARANCE,URINE CLEAR; BILIRUBIN,URINE NEGATIVE (NEGATIVE); COLOR,URINE YELLOW; GLUCOSE,URINE NEGATIVE (NEGATIVE); KETONES,URINE NEGATIVE (NEGATIVE); LEUKOCYTE ESTERASE,URINE NEGATIVE (NEGATIVE); NITRITE,URINE NEGATIVE (NEGATIVE); OCCULT BLOOD,URINE TRACE-INTACT (NEGATIVE); PROTEIN,URINE NEGATIVE (NEGATIVE); UROBILINOGEN,URINE 0.2 EU/dL (<2.0)
[2023-01-16 08:18] LABS: BACTERIA,URINE 1+ (NEGATIVE); EPITHELIAL CELLS,URINE MODERATE (NONE-FEW); MUCUS,URINE LIGHT (NONE-MOD); WBC,URINE 0-2 (0-5/HPF)
[2023-01-16 09:13] LABS: INFLUENZA A NAA NEGATIVE (NEGATIVE); INFLUENZA B NAA NEGATIVE (NEGATIVE)
[2023-01-16 09:35] VITALS: BP 114/77; PULSE 82
== END 2023-01-16 09:56 | disposition home or self-care (01) ==
LOC: MW.ED 06:10
DX: B34.9 Viral infection, unspecified (principal); Z20.822 Contact with and (suspected) exposure to COVID-19
CPT/HCPCS: 36415; 80053; 81001; 83690; 84703; 85025; 86308; 87635; 87651; 96360; 99283; J3490; J7120; U0002

== ENCOUNTER 2024-06-09 11:00 | Emergency (ER) | payer BC, OTHER ==
[2024-06-09] MEDS: Ibuprofen 600 MG Tab PO ONE (11:19)
[2024-06-09] MEDS: Ondansetron 4 MG Tab.DIS PO ONE (11:20)
[2024-06-09] MEDS: Acetaminophen 500 MG Tab PO ONE (11:20)
[2024-06-09 12:06] VITALS: BP 119/76; PULSE 98
[2024-06-09] MEDS: Dexamethasone 4 MG Tab PO ONE (12:51)
== END 2024-06-09 12:52 | disposition left against medical advice (07) ==
LOC: MW.ED 11:00
DX: J02.9 Acute pharyngitis, unspecified (principal); R05.9 Cough, unspecified; R09.81 Nasal congestion; F17.210 Nicotine dependence, cigarettes, uncomplicated
CPT/HCPCS: 71045; 87428; 87651; 99284; A9270

== ENCOUNTER 2025-02-25 00:27 | Emergency (ER) | payer BC ==
[2025-02-25] MEDS: Ketorolac 30 MG/ML SDV IM ONE (01:09)
[2025-02-25 02:07] VITALS: BP 125/54; PULSE 85
== END 2025-02-25 02:15 | disposition home or self-care (01) ==
LOC: MW.ED 00:27
DX: M79.605 Pain in left leg (principal)
CPT/HCPCS: 73552; 93971; 96372; 99284; A9270; J1885